=== PATIENT | female | born 1990 | race Caucasian/White ===

== ENCOUNTER 2020-11-13 16:06 | Emergency (ER) | payer OTHER, SELFPAY ==
[2020-11-13 17:39] VITALS: BP 122/58; PULSE 90; RESP 16; TEMP 36.4; O2SAT 98; BMI 27.9
[2020-11-13 17:51] VITALS: BP 109/69; PULSE 94; RESP 18; TEMP 36.8; O2SAT 97
--- NOTE | 2020-11-13 18:03 | ED.GENADULT ---
HPI - General Adult General Chief complaint: Extremity Injury, Lower <Katalina Olivera NP - Last Filed: 11/13/20 20:01> Stated complaint: pain in joints <Katalina Olivera NP - Last Filed: 11/13/20 20:01> Time Seen by Provider: 11/13/20 17:48 <Katalina Olivera NP - Last Filed: 11/13/20 20:01> Source: patient <Katalina Olivera NP - Last Filed: 11/13/20 20:01> Mode of arrival: ambulatory <Katalina Olivera NP - Last Filed: 11/13/20 20:> Limitations: no limitations <Katalina Olivera NP - Last Filed: 11/13/20 20:01> History of Present Illness HPI narrative: 30-year-old female with a past medical history of insulin-dependent diabetes, anxiety, depression,CIDP,high cholesterol here with joint pain x1 month. Patient tells me that she has had joint pain which is worsened in the morning and this is associated with swelling and stiffness which improves throughout the day x1 month. No previous injuries or traumas. Spoke to her doctor via telemedicine and was prescribed ibuprofen. Patient tells me he has continued symptoms not relieved. No swelling, fevers, chills, malaise, weakness. <Katalina Olivera NP - Last Filed: 11/13/20 20:01> Onset (ago): month(s) <NIKKI Gonzalez Last Filed: 11/13/20 20:01> Location: upper extremity and lower extremity <Katalina Olivera NP - Last Filed: 11/13/20 20:01> Radiation: non-radiation <Katalina Olivera NP - Last Filed: 11/13/20 20:01> Severity: mild <NIKKI Gonzalez Last Filed: 11/13/20 20:01> Quality: aching <NIKKI Gonzalez Last Filed: 11/13/20 20:01> Pain Consistency: intermittent <NIKKI Gonzalez Last Filed: 11/13/20 20:01> Relieving factors: movement <Katalina Olivera NP - Last Filed: 11/13/20 20:01> Exacerbating factors: immobilization <Katalina Olivera NP - Last Filed: 11/13/20 20:01> Associated symptoms: denies other symptoms <NIKKI Gonzalez Last Filed: 11/13/20 20:01> Treatments prior to arrival: none <Katalina Olivera NP - Last Filed: 11/13/20 20:01> Related Data Home medications: Home Medications Medication Instructions Recorded Confirmed duloxetine 20 mg capsule,delayed 20 mg PO DAILY cap 10/14/20 11/19/20 release insulin lispro 100 unit/mL 1 sliding scale dose SUBCUT 10/14/20 11/19/20 subcutaneous solution USEASDIRECTD trazodone 50 mg tablet 50 mg PO BEDTIME PRN 10/14/20 11/19/20 Previous Rx's Medication Instructions Recorded cyclobenzaprine 10 mg tablet 10 mg PO BEDTIME 30 Days #30 tab 11/04/20 ibuprofen 800 mg tablet 800 mg PO Q8H 10 Days #30 tab 11/04/20 <Katalina Olivera NP - Last Filed: 11/13/20 20:01> Allergies/adverse reactions: Allergies Allergy/AdvReac Type Severity Reaction Status Date / Time sertraline [From ZOLOFT] Allergy Unknown SEIZURE Unverified 07/10/20 16:28 gabapentin AdvReac Unknown depression Verified 01/02/20 00:00 zoloft Allergy Unknown Uncoded 11/05/19 00:00 <Katalina Olivera NP - Last Filed: 11/13/20 20:01> Review of Systems Review of Systems: Yes all other systems are reviewed and are negative <NIKKI Gonzalez Last Filed: 11/13/20 20:01> Constitutional: Constitutional: Reports no additional constitutional complaints, Denies body ache(s), Denies chills, Denies fever(s), Denies headache(s) and Denies weakness <NIKKI Gonzalez Last Filed: 11/13/20 20:01> Eyes: Eyes: Reports no additional eye complaints and Denies change in vision <Katalina Olivera NP - Last Filed: 11/13/20 20:> ENT: Reports system reviewed and no additional complaints, except as documented, Denies dizziness, Denies headache(s), Denies nasal congestion, Denies nasal discharge and Denies neck pain <Katalina Olivera NP - Last Filed: 11/13/20 20:> Cardiovascular: Cardiovascular: Reports no additional cardiovascular complaints, Denies chest pain, Denies leg edema and Denies dyspnea <Katalina Olivera NP - Last Filed: 11/13/20 20:> Respiratory: Respiratory: Reports no additional respiratory complaints, Denies cough and Denies dyspnea <Katalina Olivera NP - Last Filed: 11/13/20 20:> Gastrointestinal: Gastrointestinal: Reports no additional gastrointestinal complaints, Denies abdominal pain, Denies diarrhea, Denies nausea and Denies vomiting <Katalina Olivera NP - Last Filed: 11/13/20 20:> Genitourinary: Genitourinary: Reports no additional female genitourinary complaints and Denies urinary incontinence <Katalina Olivera NP - Last Filed: 11/13/20 20:> Musculoskeletal: Musculoskeletal: Reports no additional musculoskeletal complaints, Denies back pain, Reports arthralgias, Reports joint swelling, Denies neck pain, Denies numbness and Denies tingling <Katalina Olivera NP - Last Filed: 11/13/20 20:> Integumentary/Breasts: Skin/Breast: Reports system reviewed and no additional complaints, except as docu and Denies rash <Katalina Olivera NP - Last Filed: 11/13/20 20:> Neurologic: Reports system reviewed and no additional complaints, except as documented, Denies Abnormal speech present, Denies dizziness, Denies headache(s), Denies numbness, Denies tingling and Denies weakness <Katalina Olivera NP - Last Filed: 11/13/20 20:> PMFSH Past Medical History Attestation statement: The following information was validated with the patient. <Katalina Olivera NP - Last Filed: 11/13/20 20:01> Source: old records reviewed and nursing notes reviewed <Katalina Olivera NP - Last Filed: 11/13/20 20:01> Medical History: Medical History (Updated 11/19/20 @ 09:34 by Raimundo Marques MD) CIDP (chronic inflammatory demyelinating polyneuropathy) Diabetes mellitus type 1 Hypercholesterolemia <Katalina Olivera NP - Last Filed: 11/13/20 20:01> Family History Family History: Family History Mother Fibromyalgia Father High cholesterol Diabetes <Katalina Olivera NP - Last Filed: 11/13/20 20:01> Social History Social History: Social History Alcohol intake: never <Katalina Olivera NP - Last Filed: 11/13/20 20:01> Physical Exam Vital Signs: Vital Signs: Last Vital Signs Temp 98.3 F 11/13/20 17:51 Pulse 94 11/13/20 17:51 Resp 18 11/13/20 17:51 BP 109/69 11/13/20 17:51 Pulse Ox 97 11/13/20 17:51 Body Mass Index 27.9 <Katalina Olivera NP - Last Filed: 11/13/20 20:01> Vital Signs: Last Vital Signs Temp 98.3 F 11/13/20 17:51 Pulse 94 11/13/20 17:51 Resp 18 11/13/20 17:51 BP 109/69 11/13/20 17:51 Pulse Ox 97 11/13/20 17:51 Body Mass Index 27.9 <Andre Isbell MD - Last Filed: 11/19/20 12:31> Const: General: cooperative, healthy appearing, comfortable and no acute distress <Katalina Olivera NP - Last Filed: 11/13/20 20:01> Orientation/consciousness: patient oriented x3 <Katalina Olivera NP - Last Filed: 11/13/20 20:01> Limitations: no limitations <Katalina Olivera NP - Last Filed: 11/13/20 20:01> HENMT: Head: Yes normal to inspection <Katalina Olivera NP - Last Filed: 11/13/20 20:01> Ears: hearing grossly normal bilaterally <Katalina Olivera NP - Last Filed: 11/13/20 20:01> General nose exam: Normal external nose present <Katalina Olivera NP - Last Filed: 11/13/20 20:01> Face and sinus: Yes normal facial exam <Katalina Olivera NP - Last Filed: 11/13/20 20:01> Mouth: Normal oral and palatal mucosa present <Katalina Olivera ASSOCIATE PROFESSOR OF GEOLOGY - Last Filed: 11/13/20 20:01> Throat: Yes posterior oropharynx normal <Katalina Olivera NP - Last Filed: 11/13/20 20:01> Eyes: General: appearance normal, both eyes and all related structures <Katalina Olivera ASSOCIATE PROFESSOR OF GEOLOGY - Last Filed: 11/13/20 20:01> Pupils: Equal, round and reactive pupils present <Katalina Olivera ASSOCIATE PROFESSOR OF GEOLOGY - Last Filed: 11/13/20 20:01> Neck: Neck: Yes normal visual inspection <Katalina Olivera NP - Last Filed: 11/13/20 20:01> Chest: Chest palpation & inspection: normal inspection of the chest <Katalina Olivera NP - Last Filed: 11/13/20 20:01> Resp: Effort & Inspection: normal respiratory effort <Katalina Olivera NP - Last Filed: 11/13/20 20:01> Auscultation: clear to auscultation bilaterally <Katalina Olivera NP - Last Filed: 11/13/20 20:01> Cardio: Rate: regular rate <Katalina Olivera NP - Last Filed: 11/13/20 20:01> Rhythm: regular rhythm <Katalina Olivera NP - Last Filed: 11/13/20 20:01> Peripheral pulses: Peripheral pulses 2+ throughout <Katalina Olivera NP - Last Filed: 11/13/20 20:01> GI: Inspection: Yes normal to inspection <Katalina Olivera NP - Last Filed: 11/13/20 20:01> Palpation (GI): Soft to palpation and nontender <Katalina Olivera NP - Last Filed: 11/13/20 20:01> Auscultation: normal bowel sounds <Katalina Olivera NP - Last Filed: 11/13/20 20:01> Back/Spine/Pelvis: Thoracic/Lumbar Spine: thoracic and lumbar spine normal to inspection <Katalina Olivera NP - Last Filed: 11/13/20 20:01> Skin: General skin exam: no rashes or lesions noted <Katalina Olivera NP - Last Filed: 11/13/20 20:01> Neuro: General: patient oriented x3, no focal motor deficits and normal sensation to monofilament <Katalina Olivera NP - Last Filed: 11/13/20 20:01> Cranial nerves: Yes Equal, round and reactive pupils present <Katalina Olivera NP - Last Filed: 11/13/20 20:01> Cognition (Neuro): normal cognition <Katalina Olivera NP - Last Filed: 11/13/20 20:01> Speech: No Abnormal speech present <Katalina Olivera NP - Last Filed: 11/13/20 20:01> Gait exam (Neuro): Normal gait present <Katalina Olivera NP - Last Filed: 11/13/20 20:01> Motor exam (neuro): 5/5 motor strength present throughout <Katalina Olivera NP - Last Filed: 11/13/20 20:01> Extrem: Other: Multiple myalgias, full range of motion. No appreciable swelling, erythema, rashes <Katalina Olivera NP - Last Filed: 11/13/20 20:01> General: Yes normal to inspection <Katalina Olivera NP - Last Filed: 11/13/20 20:01> Course Course Course Narrative: Through 1-year-old female here with joint pain x1 month. No other associated symptoms. Pain is worsened in the morning and associated with swelling and stiffness. Exam is benign. Will check labs. I did discuss with the patient she likely will need to follow up with the guest room attendant for additional testing. Provide analgesia and re-assess. 1930-lab show potassium 5.4 with slight hemolysis not likely accurate. Mildly elevated inflammatory markers. Discussed findings with patient. There is likely underlying rheumatoid arthritis or another inflammatory disease. Recommend patient f.u with PCP and/or seek referral for rheumatology. Reviewed worrisome signs and symptoms of when to return to the emergency department. Comfortable discharge home. <Katalina Olivera NP - Last Filed: 11/13/20 20:01> I have reviewed the chart <Andre Isbell MD - Last Filed: 11/19/20 12:31> Medical Decision Making Medical Records Medical records reviewed: Yes I reviewed the patient's medical records. <Katalina Olivera NP - Last Filed: 11/13/20 20:01> Lab Data Lab results reviewed: Yes I reviewed the patient's lab results. <Katalina Olivera NP - Last Filed: 11/13/20 20:01> Result diagrams: : 11/13/20 18:31 11/13/20 18:31 <Katalina Olivera NP - Last Filed: 11/13/20 20:01> Labs: Lab Results 11/13/20 11/13/20 11/13/20 Range/Units 18:31 18:31 18:31 WBC 7.3 (4.8-10.8) X10*3/uL RBC 4.00 L (4.20-5.50) X10*6/uL Hgb 10.8 L (12.0-16.0) g/dl Hct 35.6 L (37-47) % MCV 89.0 (80-98) fL MCH 27.0 (27.0-33.0) pg MCHC 30.3 L (31.0-35.0) g/dl RDW 12.8 (11.0-16.0) % Plt Count 294 (160-400) X10*3/uL MPV 9.9 (9.4-12.3) fL Immature Gran % (Auto) 0.1 (0.0-0.4) % Neut % (Auto) 59.0 (45-73) % Lymph % (Auto) 30.9 (20-40) % [facility] % (Auto) 8.0 (2-11) % Eos % (Auto) 1.7 (0-4) % Baso % (Auto) 0.3 (0-2) % Lymph # (Auto) 2.3 (1.2-4.9) X10*3/uL [facility] [facility] # (Auto) 0.6 (0.1-1.2) X10*3/uL Eos # (Auto) 0.1 (0.0-0.4) X10*3/uL Baso # (Auto) 0.0 (0.0-0.2) X10*3/uL Abs Immat Gran (auto) 0.01 (0.00-0.03) X10*3/uL Absolute Neuts (auto) 4.3 (2.0-8.3) X10*3/uL Absolute Nucleated RBC 0.000 (0.0-0.012) X10*3/uL Nucleated RBC % (auto) 0.0 (0.0-0.2) /100WBC ESR 66 H (0-20) MM/HR Hold Blue Top SEE NOTE Sodium (135-145) mmol/L Potassium (3.3-5.1) mmol/l Chloride (96-108) mmol/L Carbon Dioxide (22-29) mmol/L Anion Gap (12-20) BUN (9-16) mg/dL Creatinine (0.5-1.4) mg/dL Estim Creat Clear Calc Estimated GFR Random Glucose (60-115) mg/dL Calcium (8.4-10.2) mg/dL C-Reactive Protein (< or = 0.50) mg/dL 11/13/20 Range/Units 18:31 WBC (4.8-10.8) X10*3/uL RBC (4.20-5.50) X10*6/uL Hgb (12.0-16.0) g/dl Hct (37-47) % MCV (80-98) fL MCH (27.0-33.0) pg MCHC (31.0-35.0) g/dl RDW (11.0-16.0) % Plt Count (160-400) X10*3/uL MPV (9.4-12.3) fL Immature Gran % (Auto) (0.0-0.4) % Neut % (Auto) (45-73) % Lymph % (Auto) (20-40) % [facility] [place] [facility] % (Auto) (2-11) % Eos % (Auto) (0-4) % Baso % (Auto) (0-2) % Lymph # (Auto) (1.2-4.9) X10*3/uL [facility] [place] [facility] # (Auto) (0.1-1.2) X10*3/uL Eos # (Auto) (0.0-0.4) X10*3/uL Baso # (Auto) (0.0-0.2) X10*3/uL Abs Immat Gran (auto) (0.00-0.03) X10*3/uL Absolute Neuts (auto) (2.0-8.3) X10*3/uL Absolute Nucleated RBC (0.0-0.012) X10*3/uL Nucleated RBC % (auto) (0.0-0.2) /100WBC ESR (0-20) MM/HR Hold Blue Top Sodium 137 (135-145) mmol/L Potassium 5.4 H (3.3-5.1) mmol/l Chloride 101 (96-108) mmol/L Carbon Dioxide 29 (22-29) mmol/L Anion Gap 12 (12-20) BUN 8 L (9-16) mg/dL Creatinine 0.87 (0.5-1.4) mg/dL Estim Creat Clear Calc 91.4 Estimated GFR > 60 Random Glucose 289 H (60-115) mg/dL Calcium 8.9 (8.4-10.2) mg/dL C-Reactive Protein 4.81 H (< or = 0.50) mg/dL <Katalina Olivera, ASSOCIATE PROFESSOR OF GEOLOGY - Last Filed: 11/13/20 20:01> Lab Results 11/13/20 11/13/20 11/13/20 Range/Units 18:31 18:31 18:31 WBC 7.3 (4.8-10.8) X10*3/uL RBC 4.00 L (4.20-5.50) X10*6/uL Hgb 10.8 L (12.0-16.0) g/dl Hct 35.6 L (37-47) % MCV 89.0 (80-98) fL MCH 27.0 (27.0-33.0) pg MCHC 30.3 L (31.0-35.0) g/dl RDW 12.8 (11.0-16.0) % Plt Count 294 (160-400) X10*3/uL MPV 9.9 (9.4-12.3) fL Immature Gran % (Auto) 0.1 (0.0-0.4) % Neut % (Auto) 59.0 (45-73) % Lymph % (Auto) 30.9 (20-40) % [facility] [place] [facility] % (Auto) 8.0 (2-11) % Eos % (Auto) 1.7 (0-4) % Baso % (Auto) 0.3 (0-2) % Lymph # (Auto) 2.3 (1.2-4.9) X10*3/uL [facility] [place] [facility] # (Auto) 0.6 (0.1-1.2) X10*3/uL Eos # (Auto) 0.1 (0.0-0.4) X10*3/uL Baso # (Auto) 0.0 (0.0-0.2) X10*3/uL Abs Immat Gran (auto) 0.01 (0.00-0.03) X10*3/uL Absolute Neuts (auto) 4.3 (2.0-8.3) X10*3/uL Absolute Nucleated RBC 0.000 (0.0-0.012) X10*3/uL Nucleated RBC % (auto) 0.0 (0.0-0.2) /100WBC ESR 66 H (0-20) MM/HR Hold Blue Top SEE NOTE Sodium (135-145) mmol/L Potassium (3.3-5.1) mmol/l Chloride (96-108) mmol/L Carbon Dioxide (22-29) mmol/L Anion Gap (12-20) BUN (9-16) mg/dL Creatinine (0.5-1.4) mg/dL Estim Creat Clear Calc Estimated GFR Random Glucose (60-115) mg/dL Calcium (8.4-10.2) mg/dL C-Reactive Protein (< or = 0.50) mg/dL 11/13/20 Range/Units 18:31 WBC (4.8-10.8) X10*3/uL RBC (4.20-5.50) X10*6/uL Hgb (12.0-16.0) g/dl Hct (37-47) % MCV (80-98) fL MCH (27.0-33.0) pg MCHC (31.0-35.0) g/dl RDW (11.0-16.0) % Plt Count (160-400) X10*3/uL MPV (9.4-12.3) fL Immature Gran % (Auto) (0.0-0.4) % Neut % (Auto) (45-73) % Lymph % (Auto) (20-40) % [facility] % (Auto) (2-11) % Eos % (Auto) (0-4) % Baso % (Auto) (0-2) % Lymph # (Auto) (1.2-4.9) X10*3/uL [facility] # (Auto) (0.1-1.2) X10*3/uL Eos # (Auto) (0.0-0.4) X10*3/uL Baso # (Auto) (0.0-0.2) X10*3/uL Abs Immat Gran (auto) (0.00-0.03) X10*3/uL Absolute Neuts (auto) (2.0-8.3) X10*3/uL Absolute Nucleated RBC (0.0-0.012) X10*3/uL Nucleated RBC % (auto) (0.0-0.2) /100WBC ESR (0-20) MM/HR Hold Blue Top Sodium 137 (135-145) mmol/L Potassium 5.4 H (3.3-5.1) mmol/l Chloride 101 (96-108) mmol/L Carbon Dioxide 29 (22-29) mmol/L Anion Gap 12 (12-20) BUN 8 L (9-16) mg/dL Creatinine 0.87 (0.5-1.4) mg/dL Estim Creat Clear Calc 91.4 Estimated GFR > 60 Random Glucose 289 H (60-115) mg/dL Calcium 8.9 (8.4-10.2) mg/dL C-Reactive Protein 4.81 H (< or = 0.50) mg/dL <Andre Isbell MD - Last Filed: 11/19/20 12:31> Discharge Plan Discharge Clinical Impression: Arthritis <Katalina Olivera NP - Last Filed: 11/13/20 20:01> Patient Disposition: Home, Self-Care <Katalina Olivera NP - Last Filed: 11/13/20 20:01> Instructions: Arthritis (ED) <Katalina Olivera NP - Last Filed: 11/13/20 20:01> Additional Instructions: Ask your doctor for a referral to see a guest room attendant as you need to be worked up for underlying causes Your inflammatory markers were elevated today Continue motrin <Katalina Olivera NP - Last Filed: 11/13/20 20:01> Prescriptions: No Action ibuprofen 800 mg tablet 800 mg PO Q8H 10 Days Qty: 30 RF: 0 cyclobenzaprine 10 mg tablet 10 mg PO BEDTIME 30 Days Qty: 30 RF: 0 duloxetine 20 mg capsule,delayed release(DR/EC) 20 mg PO DAILY RF: 0 insulin lispro [Admelog U-100 Insulin lispro] 100 unit/mL solution 1 sliding scale dose subcut USEASDIRECTD RF: 0 trazodone 50 mg tablet 50 mg PO BEDTIME PRNRF: 0 <Katalina Olivera NP - Last Filed: 11/13/20 20:01> Referrals: Sarah Bates MD [Primary Care Provider] - 2 days <Katalina Olivera NP - Last Filed: 11/13/20 20:01> Stand Alone Forms: Work/School Release <Katalina Olivera NP - Last Filed: 11/13/20 20:01> Interventions: ED Discharge Assessment Last Done: 11/13/20 19:50 <Katalina Olivera NP - Last Filed: 11/13/20 20:01> Discharge Date/Time: 11/13/20 19:52 <Katalina Olivera NP - Last Filed: 11/13/20 20:01>
[2020-11-13] MEDS: Ketorolac Tromethamine 60 MG/2 ML VIAL IM (18:33)
[2020-11-13 18:34] LABS: MANUAL DIFF FLAG NO
[2020-11-13 18:36] LABS: Basophils Percent Auto 0.3 % (0-2); Eosinophils Absolute Auto 0.1 X10*3/uL (0.0-0.4); Eosinophils Percent Auto 1.7 % (0-4); Hematocrit 35.6 % (37-47); Hemoglobin 10.8 g/dl (12.0-16.0); Imm Gran Abs Auto 0.01 X10*3/uL (0.00-0.03); Imm Gran Pct Auto 0.1 % (0.0-0.4); Lymphocytes Absolute Auto 2.3 X10*3/uL (1.2-4.9); Lymphocytes Percent Auto 30.9 % (20-40); Mean Corpuscular HGB Conc 30.3 g/dl (31.0-35.0); Mean Platelet Volume 9.9 fL (9.4-12.3); Monocytes Absolute Auto 0.6 X10*3/uL (0.1-1.2); Neutrophils Absolute Auto 4.3 X10*3/uL (2.0-8.3); Platelet Count 294 X10*3/uL (160-400); Red Cell Distribution Width 12.8 % (11.0-16.0); White Blood Count 7.3 X10*3/uL (4.8-10.8)
[2020-11-13 19:17] LABS: Anion Gap 12 (12-20); Blood Urea Nitrogen 8 mg/dL (9-16); C Reactive Protein 4.81 mg/dL (< or = 0.50); Calcium 8.9 mg/dL (8.4-10.2); Carbon Dioxide 29 mmol/L (22-29); Chloride 101 mmol/L (96-108); Creatinine Clr Calc Pharmacy 91.4; Estimated Glomerular Filt Rate > 60; Glucose Random 289 mg/dL (60-115); Potassium 5.4 mmol/l (3.3-5.1); Sodium 137 mmol/L (135-145)
[2020-11-13 19:31] LABS: Erythrocyte Sedimentation Rate 66 MM/HR (0-20)
== END 2020-11-13 19:52 | disposition home or self-care (01) ==
PROVIDERS: Nurse Practitioner Family; Emergency Provider Emergency Medicine; PCP Internal Medicine
DX: M17.0 Bilateral primary osteoarthritis of knee (principal); M79.662 Pain in left lower leg; M79.661 Pain in right lower leg; E10.9 Type 1 diabetes mellitus without complications; Z79.899 Other long term (current) drug therapy
CPT/HCPCS: 36415; 80048; 85025; 85652; 86140; 96372; 99284; J1885

== ENCOUNTER 2020-11-21 15:31 | Outpatient (REF) | payer OTHER, SELFPAY ==
[2020-11-21 15:57] LABS: MANUAL DIFF FLAG NO
[2020-11-21 16:03] LABS: Basophils Percent Auto 0.2 % (0-2); Eosinophils Absolute Auto 0.1 X10*3/uL (0.0-0.4); Eosinophils Percent Auto 1.3 % (0-4); Hematocrit 35.3 % (37-47); Hemoglobin 10.9 g/dl (12.0-16.0); Imm Gran Abs Auto 0.03 X10*3/uL (0.00-0.03); Imm Gran Pct Auto 0.3 % (0.0-0.4); Lymphocytes Absolute Auto 2.6 X10*3/uL (1.2-4.9); Lymphocytes Percent Auto 30.3 % (20-40); Mean Corpuscular HGB Conc 30.9 g/dl (31.0-35.0); Mean Corpuscular Volume 87.4 fL (80-98); Mean Platelet Volume 10.4 fL (9.4-12.3); Monocytes Absolute Auto 0.5 X10*3/uL (0.1-1.2); Monocytes Percent Auto 6.3 % (2-11); Neutrophils Absolute Auto 5.3 X10*3/uL (2.0-8.3); Neutrophils Percent Auto 61.6 % (45-73); Platelet Count 299 X10*3/uL (160-400); Red Blood Count 4.04 X10*6/uL (4.20-5.50); Red Cell Distribution Width 12.6 % (11.0-16.0); Retic HGB Equivalent 31.7 pg (30.0-35.0); Reticulocyte Percent 1.5 % (0.5-1.8); White Blood Count 8.6 X10*3/uL (4.8-10.8)
--- NOTE | 2020-11-21 16:03 | XR_ITS ---
EXAMINATION: BILATERAL HAND X-RAY CLINICAL INFORMATION: Pain COMPARISON: Previous right wrist x-rays most recent October 2019 TECHNIQUE: 3 views of each hand FINDINGS: Right: There is a volar placed plate and screws seen in the right distal radius. Previously identified distal radius fracture appears healed. Orthopedic hardware is unchanged. There is mild osteoarthritis at the DIP joint of the fifth finger. Joint spaces are otherwise normal. Soft tissues are normal. Left: Bone alignment is normal. No fracture or dislocation is seen. Joint spaces are normal. Soft tissues are normal. XR/XR hand LT min 3V IMPRESSION: Right: ORIF of distal radius fracture. Mild osteoarthritis at the DIP joint of the fifth finger. Left: Unremarkable exam.
--- NOTE | 2020-11-21 16:03 | XR_ITS ---
EXAMINATION: BILATERAL KNEE X-RAY CLINICAL INFORMATION: Pain COMPARISON: None TECHNIQUE: 4 views each knee FINDINGS: Bone alignment is normal. No fracture or dislocation is seen. Joint spaces are normal. There is no joint effusion. XR/XR knee LT 4V IMPRESSION: Normal knees.
--- NOTE | 2020-11-21 16:03 | XR_ITS ---
EXAMINATION: BILATERAL KNEE X-RAY CLINICAL INFORMATION: Pain COMPARISON: None TECHNIQUE: 4 views each knee FINDINGS: Bone alignment is normal. No fracture or dislocation is seen. Joint spaces are normal. There is no joint effusion. XR/XR knee RT 4V IMPRESSION: Normal knees.
--- NOTE | 2020-11-21 16:03 | XR_ITS ---
EXAMINATION: BILATERAL HAND X-RAY CLINICAL INFORMATION: Pain COMPARISON: Previous right wrist x-rays most recent October 2019 TECHNIQUE: 3 views of each hand FINDINGS: Right: There is a volar placed plate and screws seen in the right distal radius. Previously identified distal radius fracture appears healed. Orthopedic hardware is unchanged. There is mild osteoarthritis at the DIP joint of the fifth finger. Joint spaces are otherwise normal. Soft tissues are normal. Left: Bone alignment is normal. No fracture or dislocation is seen. Joint spaces are normal. Soft tissues are normal. XR/XR hand RT min 3V IMPRESSION: Right: ORIF of distal radius fracture. Mild osteoarthritis at the DIP joint of the fifth finger. Left: Unremarkable exam.
[2020-11-21 16:35] LABS: Alanine Aminotransferase 19 U/L (0-31); Albumin Level 3.6 g/dL (3.5-5.0); Alkaline Phosphatase 126 U/L (39-117); Anion Gap 13 (12-20); Aspartate Amino Transferase 24 U/L (5-31); Bilirubin Total 0.4 mg/dL (0.0-1.0); Blood Urea Nitrogen 15 mg/dL (9-16); Calcium 8.8 mg/dL (8.4-10.2); Carbon Dioxide 31 mmol/L (22-29); Chloride 101 mmol/L (96-108); Cholesterol 205 mg/dL; Estimated Glomerular Filt Rate > 60; Glucose Random 165 mg/dL (60-115); HDL Cholesterol 59 mg/dL; Iron 30 mcg/dL (30-160); LDL Cholesterol Calculated 83 mg/dl; Percent Iron Saturation 9 % (15-50); Potassium 4.5 mmol/L (3.3-5.1); Rheumatoid Factor < 15.0 IU/mL (<15.0); Sodium 140 mmol/L (135-145); Total Iron Binding Capacity 332 mcg/dL (228-428); Total Protein 7.1 g/dL (6.5-8.0); Triglycerides 317 mg/dL; Unsaturated Iron Binding 302 ug/dL
[2020-11-21 16:57] LABS: Ferritin 20 ng/mL (10-122); Free T4 (Free Thyroxine) 0.88 ng/dL (0.71-1.85); Thyroid Stimulating Hormone 2.82 uIU/mL (0.32-4.0)
[2020-11-21 17:13] LABS: Erythrocyte Sedimentation Rate 78 MM/HR (0-20)
[2020-11-24 16:33] LABS: Folate 15.3 ng/mL (> or = 4.0); Vitamin B12 427 pg/mL (200-900)
== END 2020-11-21 15:32 | disposition home or self-care (01) ==
LOC: HO.LAB 15:31
PROVIDERS: PCP Internal Medicine; Visit Provider Internal Medicine
DX: M79.642 Pain in left hand (principal); M79.641 Pain in right hand; M25.562 Pain in left knee; M25.561 Pain in right knee; D64.9 Anemia, unspecified; E78.00 Pure hypercholesterolemia, unspecified
CPT/HCPCS: 36415; 73130; 73564; 80053; 80061; 82607; 82728; 82746; 83540; 84439; 84443; 85025; 85045; 85652; 86038; 86039; 86431

== ENCOUNTER 2021-02-12 10:09 | Outpatient (REF) | payer OTHER, SELFPAY ==
[2021-02-12 11:21] LABS: MANUAL DIFF FLAG NO
[2021-02-12 11:39] LABS: Basophils Percent Auto 0.5 % (0-2); Eosinophils Absolute Auto 0.1 X10*3/uL (0.0-0.4); Eosinophils Percent Auto 1.1 % (0-4); Hematocrit 34.9 % (37-47); Hemoglobin 10.6 g/dl (12.0-16.0); Imm Gran Abs Auto 0.03 X10*3/uL (0.00-0.03); Imm Gran Pct Auto 0.3 % (0.0-0.4); Lymphocytes Absolute Auto 2.2 X10*3/uL (1.2-4.9); Lymphocytes Percent Auto 24.5 % (20-40); Mean Corpuscular HGB Conc 30.4 g/dl (31.0-35.0); Mean Corpuscular Hemoglobin 25.2 pg (27.0-33.0); Mean Corpuscular Volume 82.9 fL (80-98); Mean Platelet Volume 10.5 fL (9.4-12.3); Monocytes Absolute Auto 0.5 X10*3/uL (0.1-1.2); Monocytes Percent Auto 5.8 % (2-11); Neutrophils Percent Auto 67.8 % (45-73); Platelet Count 340 X10*3/uL (160-400); Red Blood Count 4.21 X10*6/uL (4.20-5.50); Red Cell Distribution Width 13.9 % (11.0-16.0); White Blood Count 8.8 X10*3/uL (4.8-10.8)
[2021-02-12 12:16] LABS: Thyroid Stimulating Hormone 2.02 uIU/mL (0.32-4.0)
[2021-02-12 12:22] LABS: Alanine Aminotransferase 11 U/L (0-31); Albumin Level 3.7 g/dL (3.5-5.0); Alkaline Phosphatase 136 U/L (39-117); Anion Gap 14 (12-20); Aspartate Amino Transferase 15 U/L (5-31); Bilirubin Total 0.2 mg/dL (0.0-1.0); Blood Urea Nitrogen 20 mg/dL (9-16); C Reactive Protein 5.53 mg/dL (< or = 0.50); Calcium 9.2 mg/dL (8.4-10.2); Carbon Dioxide 27 mmol/L (22-29); Chloride 103 mmol/L (96-108); Estimated Glomerular Filt Rate > 60; Glucose Random 248 mg/dL (60-115); Potassium 4.6 mmol/L (3.3-5.1); Sodium 139 mmol/L (135-145); Total Protein 7.6 g/dL (6.5-8.0)
[2021-02-12 12:52] LABS: Rheumatoid Factor < 15.0 IU/mL (<15.0)
[2021-02-12 13:09] LABS: Erythrocyte Sedimentation Rate 63 MM/HR (0-20)
[2021-02-13 05:16] LABS: Lyme Abs Screen <0.90 index
[2021-02-13 11:41] LABS: Cyclic Citrullinated Peptide <16 UNITS
[2021-02-13 12:33] LABS: Antibody to SS-A Antigen <1.0 NEG AI (<1.0 NEG); Antibody to SS-B Antigen <1.0 NEG AI (<1.0 NEG)
[2021-02-13 22:42] LABS: Anti Nuclear Antibody Pattern Nuclear, Homogeneous; Anti Nuclear Antibody Screen POSITIVE (NEGATIVE)
[2021-02-16 17:41] LABS: Vitamin D 25-OH, D2 5 ng/mL; Vitamin D 25-OH, D3 24 ng/mL; Vitamin D 25-OH, Total 29 ng/mL (30-100)
== END 2021-02-12 10:10 | disposition home or self-care (01) ==
LOC: HO.LAB 10:09
PROVIDERS: PCP Internal Medicine; Visit Provider Student in an Organized Health Care Education/Training Program
DX: M25.50 Pain in unspecified joint (principal); G61.81 Chronic inflammatory demyelinating polyneuritis; Z79.899 Other long term (current) drug therapy; Z79.4 Long term (current) use of insulin
CPT/HCPCS: 36415; 80053; 82306; 84443; 85025; 85652; 86038; 86039; 86140; 86200; 86235; 86431; 86617; 86618; 99202

== ENCOUNTER 2021-02-25 15:32 | Outpatient (REF) | payer OTHER, SELFPAY ==
[2021-02-25 16:25] LABS: MANUAL DIFF FLAG NO
[2021-02-25 16:35] LABS: Estimated Average Glucose 200 mg/dL; Hemoglobin A1c % 8.6 %
[2021-02-25 16:36] LABS: Basophils Percent Auto 0.3 % (0-2); Eosinophils Absolute Auto 0.1 X10*3/uL (0.0-0.4); Eosinophils Percent Auto 0.9 % (0-4); Hematocrit 35.2 % (37-47); Hemoglobin 10.9 g/dl (12.0-16.0); Imm Gran Abs Auto 0.02 X10*3/uL (0.00-0.03); Imm Gran Pct Auto 0.3 % (0.0-0.4); Immature Retic Fraction 17.7 % (3.0-15.9); Lymphocytes Absolute Auto 2.4 X10*3/uL (1.2-4.9); Lymphocytes Percent Auto 30.7 % (20-40); Mean Corpuscular Hemoglobin 25.3 pg (27.0-33.0); Mean Corpuscular Volume 81.9 fL (80-98); Mean Platelet Volume 10.7 fL (9.4-12.3); Monocytes Absolute Auto 0.4 X10*3/uL (0.1-1.2); Monocytes Percent Auto 5.3 % (2-11); Neutrophils Absolute Auto 4.8 X10*3/uL (2.0-8.3); Neutrophils Percent Auto 62.5 % (45-73); Platelet Count 326 X10*3/uL (160-400); Red Cell Distribution Width 14.3 % (11.0-16.0); Retic HGB Equivalent 28.5 pg (30.0-35.0); Reticulocyte Percent 1.3 % (0.5-1.8); Reticulocytes Absolute 0.054 X10*6/uL (0.026-0.095); White Blood Count 7.7 X10*3/uL (4.8-10.8)
[2021-02-25 16:59] LABS: Rheumatoid Factor < 15.0 IU/mL (<15.0)
[2021-02-25 17:06] LABS: Iron 122 mcg/dL (30-160); Percent Iron Saturation 39 % (15-50); Total Iron Binding Capacity 313 mcg/dL (228-428); Unsaturated Iron Binding 191 ug/dL
[2021-02-25 17:29] LABS: Ferritin 31 ng/mL (10-122)
[2021-02-25 17:39] LABS: Vitamin B12 448 pg/mL (200-900)
[2021-02-26 09:11] LABS: Thyroglobulin Antibodies 22 IU/mL (< or = 1); Thyroid Peroxidase Antibodies 583 IU/mL (<9)
[2021-02-26 10:22] LABS: Complement C3 181 mg/dL (83-193)
[2021-02-26 12:02] LABS: Anti DNA DS Antibody <1 IU/mL; SM/Ribonucleoprotein Ab <1.0 NEG AI (<1.0 NEG); Smith Protein <1.0 NEG AI (<1.0 NEG)
== END 2021-02-25 15:33 | disposition home or self-care (01) ==
LOC: HO.LAB 15:32
PROVIDERS: Nurse Practitioner Family; PCP Internal Medicine; Visit Provider Student in an Organized Health Care Education/Training Program
DX: M25.562 Pain in left knee (principal); E10.9 Type 1 diabetes mellitus without complications; D64.9 Anemia, unspecified; R76.8 Other specified abnormal immunological findings in serum
CPT/HCPCS: 36415; 82607; 82728; 82746; 83036; 83540; 85025; 85045; 86160; 86225; 86235; 86376; 86431; 86800

== ENCOUNTER → 2021-04-17 10:22 | Outpatient (BNVA) | payer OTHER, SELFPAY | PROVIDERS: PCP Internal Medicine; Visit Provider Student in an Organized Health Care Education/Training Program | DX: M25.50 Pain in unspecified joint (principal); M79.641 Pain in right hand; M79.642 Pain in left hand; R76.8 Other specified abnormal immunological findings in serum | CPT/HCPCS: 99212 ==

== ENCOUNTER 2022-10-01 10:48 | Emergency (ER) | payer OTHER, SELFPAY ==
--- NOTE | ~2022-10-01 | US_ITS ---
EXAMINATION: US PELVIS CLINICAL INFORMATION: Vaginal bleeding in a 32-year-old female. COMPARISON: None TECHNIQUE: Ultrasound of the pelvis is performed using both transabdominal and transvaginal transducers along with Doppler. Transvaginal imaging is performed due to inadequate visualization transabdominally. FINDINGS: UTERUS AND CERVIX The anteflexed, anteverted uterus measures approximately 8.5 x 4.3 x 5 cm (ucfgjc-ky-rkmjqg x AP x transverse dimension). The myometrial echotexture is normal. No evidence of leiomyoma. There are multiple clustered cysts along the endocervical canal. This could represent endocervical hyperplasia. No focal cervical lesion. The cervix is approximately 3 cm in length. The endometrium has normal echotexture and measures up to 1.3 cm AP. This has the appearance of a secretory phase of the endometrium. No focal endometrial lesion. ADNEXA: The right ovary is 2.6 x 2 x 1.9 cm, volume of 5.2 mL and left ovary 3.6 x 2.9 x 3.1 cm, volume of 17 mL. The left ovary is enlarged due to presence of a 2.5 cm dominant follicle. FREE FLUID: None. US/US pelvic and transvaginal IMPRESSION: * No specific source of vaginal bleeding is identified. No evidence of uterine leiomyoma, endometrial polyp or endometrial fluid. * Multiple small foci of cystic change along the cervix could represent endocervical hyperplasia. * The ovaries are normal. The dominant follicle of the left ovary is 2.5 cm.
[2022-10-01 10:54] VITALS: BP 132/78; PULSE 100; RESP 16; TEMP 36.2; O2SAT 99; BMI 29.4
[2022-10-01 11:13] LABS: MANUAL DIFF FLAG NO
[2022-10-01 11:25] LABS: Basophils Percent Auto 0.3 % (0-2); Eosinophils Absolute Auto 0.1 X10*3/uL (0.0-0.4); Hemoglobin 12.4 g/dl (12.0-16.0); Imm Gran Abs Auto 0.02 X10*3/uL (0.00-0.03); Imm Gran Pct Auto 0.3 % (0.0-0.4); Lymphocytes Absolute Auto 2.2 X10*3/uL (1.2-4.9); Lymphocytes Percent Auto 37.8 % (20-40); Mean Corpuscular HGB Conc 31.8 g/dl (31.0-35.0); Mean Corpuscular Hemoglobin 27.7 pg (27.0-33.0); Mean Corpuscular Volume 87.2 fL (80.0-98.0); Mean Platelet Volume 10.2 fL (9.4-12.3); Monocytes Absolute Auto 0.3 X10*3/uL (0.1-1.2); Monocytes Percent Auto 5.6 % (2-11); Neutrophils Absolute Auto 3.1 x10*3/uL (2.0-8.3); Platelet Count 261 X10*3/uL (160-400); Red Blood Count 4.47 X10*6/uL (4.20-5.50); Red Cell Distribution Width 14.3 % (11.0-16.0); White Blood Count 5.7 X10*3/uL (4.8-10.8)
[2022-10-01 11:57] LABS: Anion Gap 12 (12-20); Blood Urea Nitrogen 8 mg/dL (9-16); Calcium 8.8 mg/dL (8.4-10.2); Carbon Dioxide 24 mmol/L (22-29); Chloride 102 mmol/L (96-108); Creatinine Clr Calc Pharmacy 91.5; Estimated Glomerular Filt Rate > 60; Glucose Random 330 mg/dL (60-115); HCG Quantitative < 2 mIU/mL; Potassium 5.2 mmol/L (3.3-5.1); Sodium 133 mmol/L (135-145)
[2022-10-01 12:58] LABS: Alanine Aminotransferase 12 U/L (0-31); Albumin Level 3.8 g/dL (3.5-5.0); Alkaline Phosphatase 110 U/L (39-117); Aspartate Amino Transferase 24 U/L (5-31); Bilirubin Direct < 0.2 mg/dL (0.0-0.5); Bilirubin Total 0.3 mg/dL (0.0-1.0); Lipase 16 U/L (8-78); Magnesium 1.8 mg/dL (1.6-2.6); Total Protein 7.7 g/dL (6.5-8.0)
--- NOTE | 2022-10-01 16:48 | ED.FEMALEGU ---
HPI - Female Genitourinary General Chief complaint: Urogenital-Female Stated complaint: Heavy Period Clots Sent By Obgyn Time Seen by Provider: 10/01/22 16:48 Source: patient Mode of arrival: ambulatory Limitations: no limitations History of Present Illness HPI Narrative: 32-year-old female presents with vaginal bleeding with heavy clot starting on 09/15/2022. She does report missing several menstrual cycles prior to this bleeding. She is not on any hormones, and is not . She is passing large clots, and has a picture of a blood clot that is the size of her hand. She is going through at least a pad an hour. She reports dizziness. MD elicited complaint: vaginal bleeding Pertinent past history: diabetes Onset (ago): day(s) (3) Location of symptoms: vaginal Severity: moderate Severity scale (1-10): 5 Quality of pain: cramping Consistency: intermittent Vaginal discharge: none Vaginal bleeding: moderate, dark red and clots Exacerbating factors: movement Relieving factors: none Associated symptoms: other (Dizziness) Treatment prior to arrival: none Sexual activity: No Patient : No Related Data : 2 Para: 1 Total number of abortions (spontaneous and elective): 1 Home Medications Medication Instructions Recorded Confirmed duloxetine 20 mg capsule,delayed 20 mg PO DAILY 10/14/20 02/25/21 release insulin lispro 100 unit/mL 1 sliding scale dose subcut 10/14/20 02/25/21 subcutaneous solution (Admelog USEASDIRECTD U-100 Insulin lispro) Previous Rx's Medication Instructions Recorded ascorbic acid (vitamin C) 500 mg 500 mg PO DAILY #30 tabs 01/19/21 tablet (Vitamin C) ibuprofen 800 mg tablet 800 mg PO Q8H #30 tabs 11/30/21 ferrous sulfate 325 mg (65 mg 325 mg PO DAILY #30 tabs 01/22/22 iron) tablet desogestrel 0.15 mg-ethinyl 1 tab PO DAILY #84 tabs 10/01/22 estradiol 0.03 mg tablet (Apri) Allergies Allergy/AdvReac Type Severity Reaction Status Date / Time sertraline [From ZOLOFT] Allergy Unknown SEIZURE Verified 10/01/22 10:54 gabapentin AdvReac Unknown depression Verified 10/01/22 10:54 Review of Systems Review of Systems: Constitutional: No Fever, No Chills ENT/Mouth: No sore throat, No Rhinorrhea Eyes: No Eye Pain, No Redness Cardiovascular: No Chest Pain, No SOB Respiratory: No Cough, No Sputum, No Wheezing Gastrointestinal: No Nausea, No Vomiting, No Diarrhea, positive abdominal pain Genitourinary: positive irregular bleeding, No Dysuria, No Urinary Frequency, positive pelvic pain Musculoskeletal: No Myalgias Skin: No rash Neuro: No Weakness, No Headache Yes all other systems are reviewed and are negative [facility] Past Medical History Attestation statement: The following information was validated with the patient. Source: old records reviewed Medical History CIDP (chronic inflammatory demyelinating polyneuropathy) Diabetes mellitus type 1 Distal radius fracture Hypercholesterolemia Surgical History H/O right wrist surgery : 2 Para: 1 Total number of abortions (spontaneous and elective): 1 Family History Family History Mother Fibromyalgia Father High cholesterol Diabetes Sister No problems noted. Son No problems noted. Social History Social History Alcohol intake: never Patient Tobacco Use Status: Never used Tobacco e-Cigarette/Vaping Use: Never Used Advance Directives: No Advance Directives Information Provided: Yes Patient : No Physical Exam Vital Signs: Vital Signs: Last Vital Signs Temp 97.8 F 10/01/22 17:19 Pulse 88 10/01/22 17:19 Resp 20 10/01/22 17:19 BP 150/94 H 10/01/22 17:19 Pulse Ox 100 10/01/22 17:19 O2 Del Method 10/01/22 17:19 BMI result Body Mass Index 29.4 Appearance: Alert. Oriented X3. No acute distress. Eyes: Pupils equal, round and reactive to light. ENT: Pharynx normal. Neck: Normal inspection. Neck supple. CVS: Normal heart rate and rhythm. Pulses normal. Respiratory: No respiratory distress. Breath sounds normal. Abdomen: Soft and nontender. Skin: Skin warm and dry. Normal skin color. Normal skin turgor. Extremities: Gait well-balanced well coordinated. Neuro: No motor deficit. No sensory deficit. Cranial nerves 2-12 intact. Course Course Course Narrative: Patient presented to the emergency department for evaluation for vaginal bleeding with large blood clots. She was referred by her OBGYN, and has been going through a pad an hour for the past few hours. Patient is hemodynamically stable, labs are drawn while in the emergency department waiting room, pelvic ultrasound was completed. Pelvic ultrasound indicates some abnormal cervical tissue, H&H is stable at 12 0.4/39.0. Glucose is 330, patient does not want me to correct her blood sugar as she is a type 1 diabetic and will correct on her own with her insulin pump. Her potassium is 5.2, sodium will correct on insulin administration. I did discuss plan in detail, that patient must follow-up with OBGYN for cervical biopsy as this could be cervical cancer. Patient does have a significant family history of abnormal uterine bleeding. Patient is hemodynamically stable, alert oriented x4, and eating and drinking without difficulty. 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 Patient verbalized understanding of and agrees plan of care discharge home. Verbalized understanding of signs symptoms indicating need for emergent intervention. Medications Administered Discontinued Medications Generic Name Dose Route Start Last Admin Trade Name Freq PRN Reason Stop Dose Admin Sodium Chloride 1,000 mls @ 999 mls/hr 10/01/22 12:45 10/01/22 17:28 Ns IV 10/01/22 13:45 Not Given .Q[facility]H1M [facility] Medical Decision Making Medical Decision Making Differential Diagnoses: Differential diagnosis (Fibroids, ectopic, miscarriage, menorrhagia) Lab Attestation: I reviewed the patient's lab results. Discussion of test interpretation with radiology: Discussion of test interpretation with radiology EXAMINATION:? US PELVIS CLINICAL INFORMATION:? Vaginal bleeding in a 32-year-old female. COMPARISON: None TECHNIQUE: Ultrasound of the pelvis is performed using both transabdominal and transvaginal transducers along with Doppler. Transvaginal imaging is performed due to inadequate visualization transabdominally. FINDINGS: UTERUS AND CERVIX The anteflexed, anteverted uterus measures approximately 8.5 x 4.3 x 5 cm (mebfcp-[id number]-[id number] x AP x transverse dimension). The myometrial echotexture is normal. No evidence of leiomyoma. There are multiple clustered cysts along the endocervical canal. This could represent endocervical hyperplasia. No focal cervical lesion. The cervix is approximately 3 cm in length. The endometrium has normal echotexture and measures up to 1.3 cm AP. This has the appearance of a secretory phase of the endometrium. No focal endometrial lesion. ADNEXA: The right ovary is 2.6 x 2 x 1.9 cm, volume of 5.2 mL and left ovary 3.6 x 2.9 x 3.1 cm, volume of 17 mL. The left ovary is enlarged due to presence of a 2.5 cm dominant follicle. FREE FLUID: None. US/US pelvic and transvaginal IMPRESSION: *? No specific source of vaginal bleeding is identified. No evidence of uterine leiomyoma, endometrial polyp or endometrial fluid. *? Multiple small foci of cystic change along the cervix could represent endocervical hyperplasia. *? The ovaries are normal. The dominant follicle of the left ovary is 2.5 cm. Prescription medication was considered but ultimately not given after discussion with patient/family. (e.g., pain medication, antiviral, antibiotic): Prescriptions considered but not given I considered prescription management with: Pain Medication Additional Comments: I consider TXA however patient has chronic inflammatory demyelinating polyneuropathy, polyarthralgia, and type 1 diabetes. I was unsure if the medication would interfere with her neurological deficits. Will give Apri Chronic conditions affecting care (e.g., diabetes, HTN): Chronic conditions affecting care (e.g., diabetes, HTN) Additional Comments: Type 1 diabetes, chronic inflammatory demyelinating polyneuropathy, chronic anemia Discharge Plan Discharge Clinical Impression: Menorrhagia Patient Disposition: Home, Self-Care Instructions: Dysfunctional Uterine Bleeding (ED), Menorrhagia (ED) Additional Instructions: You were evaluated for dysfunctional uterine bleeding. Your pelvic ultrasound showed some abnormalities that need to be investigated by her combination machine tool setter. No specific source of vaginal bleeding was identified however you do have some cystic changes along with cervix that could represent endocervical hyperplasia. Please take Apri daily, this is a control to help control uterine bleeding. Please call Dr. Urias and request an appointment for evaluation. Rest, drink plenty of fluids. Thank you for choosing this emergency department for evaluation. Please follow-up with primary care physician as needed. Return to the emergency department for any new, concerning, or worsening symptoms. Prescriptions: New desogestrel-ethinyl estradiol [Apri] 0.15-0.03 mg tablet 1 tab PO DAILY Qty: 84 0RF No Action ascorbic acid (vitamin C) [Vitamin C] 500 mg tablet 500 mg PO DAILY Qty: 30 11RF ibuprofen 800 mg tablet 800 mg PO Q8H Qty: 30 0RF ferrous sulfate 325 mg (65 mg iron) tablet 325 mg PO DAILY Qty: 30 11RF duloxetine 20 mg capsule,delayed release(DR/EC) 20 mg PO DAILY insulin lispro [Admelog U-100 Insulin lispro] 100 unit/mL solution 1 sliding scale dose subcut USEASDIRECTD Referrals: Bandar Urias MD [Physician] - 3 days (Menorrhagia, multiple small foci of cystic changes along the cervix) Interventions: ED Discharge Assessment Last Done: 10/01/22 17:28 Discharge Date/Time: 10/01/22 17:29
[2022-10-01 16:49] VITALS: BP 137/82; PULSE 92; RESP 20; TEMP 37; O2SAT 100
[2022-10-01 17:19] VITALS: BP 150/94; PULSE 88; RESP 20; TEMP 36.6; O2SAT 100
== END 2022-10-01 17:29 | disposition home or self-care (01) ==
PROVIDERS: Physician Assistant; Emergency Provider Emergency Medicine; PCP Internal Medicine
DX: N92.0 Excessive and frequent menstruation with regular cycle (principal); N93.8 Other specified abnormal uterine and vaginal bleeding; R42 Dizziness and giddiness; Z79.899 Other long term (current) drug therapy
CPT/HCPCS: 36415; 76830; 76856; 80048; 80076; 83690; 83735; 84702; 85025; 99283; 99284

== ENCOUNTER 2022-11-17 10:55 | Outpatient (REF) | payer OTHER, SELFPAY ==
[2022-11-17 15:17] LABS: CT PCR NOT DETECTED (Not Detect.); NG PCR NOT DETECTED (Not Detect.)
[2022-11-19 17:58] LABS: HPV mRNA E6/E7 rflx Not Detected (Not Detected)
== END 2022-11-17 10:56 | disposition home or self-care (01) ==
LOC: HO.LNP 10:55
PROVIDERS: PCP Internal Medicine; Visit Provider Obstetrics & Gynecology
DX: Z12.4 Encounter for screening for malignant neoplasm of cervix (principal); Z11.3 Encounter for screening for infections with a predominantly sexual mode of transmission; Z11.51 Encounter for screening for human papillomavirus (HPV); N93.9 Abnormal uterine and vaginal bleeding, unspecified
CPT/HCPCS: 0353U; 87624; 88142; 99202

== ENCOUNTER → 2022-11-25 09:05 | Outpatient (BNVA) | payer OTHER, SELFPAY | PROVIDERS: PCP Internal Medicine; Visit Provider Obstetrics & Gynecology | DX: Z13.89 Encounter for screening for other disorder (principal) ==

== ENCOUNTER 2023-05-10 15:46 | Outpatient (REF) | payer OTHER, SELFPAY | END 2023-05-10 15:47 | disposition home or self-care (01) | LOC: HO.LNP 15:46 | PROVIDERS: PCP Internal Medicine; Visit Provider Obstetrics & Gynecology | DX: N98.9 Complication associated with artificial fertilization, unspecified (principal) | CPT/HCPCS: 58100; 81025; 88305 ==

== ENCOUNTER 2023-05-10 15:46 | Outpatient (AMB) | payer OTHER, SELFPAY ==
--- NOTE | 2023-05-10 15:48 | MHC.OFFVIS ---
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 Gas Required: No Information Interpreted: non-clinical & clinical Outside Sales Representative: Outside Sales Representative Present (Aidyn) Allergies sertraline [From ZOLOFT] Allergy (Unknown, Verified 05/10/23 15:58) SEIZURE gabapentin Adverse Reaction (Unknown, Verified 05/10/23 15:58) depression Is last menstrual period known: No (Last period in February not sure of the date) Post menopausal: No Patient : No PFSH Medical History CIDP (chronic inflammatory demyelinating polyneuropathy) Diabetes mellitus type 1 Distal radius fracture Hypercholesterolemia Surgical History H/O right wrist surgery Family History Mother Fibromyalgia Father High cholesterol Diabetes Sister No problems noted. Son No problems noted. Social History Alcohol intake: never Patient Tobacco Use Status: Never used Tobacco e-Cigarette/Vaping Use: Never Used Female Reproductive History Menstrual Age of Menarche: 11 control method: none Date of last pap smear: 11/17/22 (negative) Office Procedures Endometrial Biopsy Details: The patient was counseled regarding the indication and benefits of endometrial sampling to rule out endometrial pathology including not limited to endometrial hyperplasia or endometrial cancer and others; The alternatives (Either do nothing vs. hysteroscopy D&C) & the risks were discussed with the patient including but not limited: pain, uterine perforation, bleeding, infection, possible injury to bladder, bowel, ureter, possible need for blood transfusion with all its possible risks. The patient verbalized understanding all questions answered and signed consent. Urine test done in the office was negative The patient was placed into the dorsal lithotomy position; a speculum was inserted in the vagina. Using aseptic technique for the procedure, the cervix was cleansed with Betadine. The anterior lip of the cervix was grasped with a single tooth tenaculum. The uterus was sounded to 7 cm with a 4 mm Pipelle was used. Tissues samples were obtained and placed in formalin, in a patient labeled container and sent to the pathology department. At the end of the procedure, there was minimal bleeding noted The patient tolerated the procedure well and was discharged in good condition with the following instructions: Nothing in the vagina until the bleeding stops. No sex until the bleeding stops, to call if any of the following occurs: fever (>100.4), flu-like symptoms, abdominal pain, heavy bleeding, four smelling vaginal discharge. The patient was instructed to schedule a Follow up appointment in 2 weeks to discuss pathology results of the biopsy and treatment options. This note was generated with a voice recognition program. Some errors may have been overlooked during the review of this note. Sometimes these errors may affect the content or meaning of a given sentence. [id number] Biopsy Results AMB Test Urine AMB Test Urine Negative Last Edit by ALYSIA Hughes on 05/10/23 16:01 Assessment & Plan Assessment & Plan Orders: Orders AMB HCG Urine Test Today Z32.02 - Encounter for test, result negative AMB Endometrial Biopsy Today N93.9 - Abnormal uterine and vaginal bleeding, unspecified Coding Level of Care Code Procedure Only Diagnoses CPT Codes Endometrial Biopsy - CPT: 72867-[id number] Biopsy ([id number])
[2023-05-10 15:58] VITALS: BP 124/64; BMI 35.5
== END 2023-05-11 12:12 | disposition home or self-care (01) ==
LOC: HO.HWS 15:46
PROVIDERS: PCP Internal Medicine; Visit Provider Obstetrics & Gynecology
DX: N93.9 Abnormal uterine and vaginal bleeding, unspecified (principal); Z32.02 Encounter for pregnancy test, result negative
CPT/HCPCS: 58100

== ENCOUNTER 2023-05-27 16:44 | Outpatient (AMB) | payer OTHER, SELFPAY ==
--- NOTE | 2023-05-27 16:44 | A.OFFPC_ITS ---
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 Finisher Required: No Allergies sertraline [From ZOLOFT] Allergy (Unknown, Verified 05/27/23 16:53) SEIZURE gabapentin Adverse Reaction (Unknown, Verified 05/27/23 16:53) depression Medication List - Last Reconciled 05/27/23 by ARSALAN Lind ascorbic acid (vitamin C) (Vitamin C) 500 mg PO DAILY duloxetine 20 mg PO DAILY insulin lispro (Admelog U-100 Insulin lispro) 1 sliding scale dose subcut USEAS DIRECTD Tobacco use date assessed: 05/27/23 HPI swelling in hands and feet HPI Details Patient is a 33-year-old female presents today for an office visit due to swelling in hands and feet for the past [address] Marques. Medical history significant for hypercholesterolemia, anxiety, depression, diabetes type 1-followed by [facility] endocrinology-on insulin pump, DARIANA positive, CIDP among others. Patient reports that she started noticed swelling in her hands and feet 3 days ago, she did not have this in the past, she also reports that today she has noted that her face is more puffy. She denies shortness of breath or chest pain, no fever or chills, no joint pains. No any new changes in her life, she reports coloring her hair 4 days ago. Patient reports that she has been walking more in the past 1 week. Patient also reports gaining weight lately. Reports blood sugars at home ranging between 180 and 250. [facility] Medical History CIDP (chronic inflammatory demyelinating polyneuropathy) Diabetes mellitus type 1 Distal radius fracture Hypercholesterolemia Surgical History H/O right wrist surgery Family History Mother Fibromyalgia Father High cholesterol Diabetes Sister No problems noted. Son No problems noted. Social History Alcohol intake: never Patient Tobacco Use Status: Never used Tobacco e-Cigarette/Vaping Use: Never Used Cognitive needs: No Hearing needs: No Vision needs: No Female Reproductive History Menstrual Age of Menarche: 11 Questionnaire Thrive Questionnaire Date Thrive assessed: 05/27/23 AUDIT C Alcohol Use Questionnaire (AUDIT-C) 1. How often do you have a drink containing alcohol?: Never 2. How many drinks containing alcohol do you have on a typical day when you are drinking?: 1 or 2 (0) 3. How often do you have six or more drinks on one occasion?: Never Total Score: 0 Score Reviewed/Action Taken: No GISSELLE-7 AMB Questionnaire GISSELLE-7 Date GISSELLE - 7 assessed: 05/27/23 Source: Developed by Drs. Timothy Gray, Addie Bay, Derick Jones and colleagues, with an educational lala from [employer]. Review of Systems Const Denies body aches, Denies chills, Denies fever(s) and Denies headache(s) Eyes Denies change in vision ENT Denies dizziness, Denies otalgia, Denies headache(s), Denies nasal discharge, Denies sinus pain and Denies sore throat Card Details: Swelling in hands, feet, puffy face Denies chest pain, Denies edema, Denies lightheadedness and Denies dyspnea Resp Denies cough, Denies dyspnea and Denies wheezing GI Denies constipation, Denies diarrhea, Denies nausea and Denies vomiting Denies dysuria Musc Denies myalgias, Denies arthralgias, Denies numbness and Denies tingling Skin/Breast Denies rash Neuro Denies dizziness, Denies headache(s), Denies numbness and Denies tingling Aller/Immun Denies wheezing Physical exam (Primary Care) Vital Signs: Last Vital Signs Pulse 90 05/27/23 16:45 BP 120/72 05/27/23 16:45 Pulse Ox 99 05/27/23 16:45 Oxygen Delivery Method Room Air 05/27/23 16:45 BMI result Body Mass Index 34.7 Tobacco/Smoking Status: Tobacco use Status Tobacco use date assessed 05/27/23 05/27/23 16:50 Patient Tobacco Use Status Never used Tobacco 05/27/23 16:50 e-Cigarette/Vaping Use Never Used 05/27/23 16:50 Thrive Assessment: Date of Thrive Assessment Date Thrive assessed 05/27/23 05/27/23 16:50 Const General: cooperative and no acute distress Orientation/consciousness: patient oriented x3 HENMT Head: Yes normocephalic and Yes atraumatic Ears: TM's normal bilaterally Face and sinus: Yes sinuses nontender Mouth: oropharynx normal and moist mucous membranes Throat: Yes posterior oropharynx normal Eyes Pupils: Equal, round and reactive pupils present Neck Neck: Yes normal visual inspection, Yes full ROM and Yes no lymphadenopathy Thyroid: other (Anterior and bilateral neck fullness noted) Resp Effort & Inspection: normal respiratory effort and able to speak in complete sentences Auscultation: clear to auscultation bilaterally, no crackles, no rales, no rhonchi and no wheezes Cardio Rate: regular rate Rhythm: regular rhythm Heart sounds: S1 normal heart sound present, S2 normal heart sound present and no murmurs Peripheral pulses: radial pulses present bilateral GI Auscultation: normal bowel sounds Skin General skin exam: no rashes or lesions noted Neuro General: patient oriented x3 Cranial nerves: Yes Equal, round and reactive pupils present Gait exam (Neuro): Normal gait present Extrem Other: Trace swelling noted to hands L>R Trace swelling noted to bilateral lower extremity distal aspect R>L Very mild swelling noted to face, patient reports that she feels like her face is more puffy General: Yes full ROM Assessment and Plan Assessment & Plan (1) Neck fullness: Code(s): R22.1 - Localized swelling, mass and lump, neck Plan: Will obtain thyroid ultrasound and check thyroid blood work - physical exam with anterior neck fullness Patient reports gaining weight recently (2) Edema of both legs: Code(s): R60.0 - Localized edema Plan: Blood work has been ordered including BNP Encouraged patient to elevate bilateral lower extremities and limit salt consumption Patient also can consider compression stockings on during the day and off at night Signs and symptoms reviewed when to notify provider or go to the emergency department (3) Diabetes mellitus type 1: Code(s): E10.9 - Type 1 diabetes mellitus without complications Qualifiers: Diabetes mellitus complication status: without complication Qualified Code(s): E10.9 - Type 1 diabetes mellitus without complications Plan: Patient is followed by [facility] Endocrinology, she will call for an appointment Patient is on insulin pump Will check A1c Plan Follow-up with PCP in 4 months for physical exam Orders: Orders B Type Natriuretic Peptide Today R60.0 - Localized edema Comprehensive Met. Panel Today R60.0 - Localized edema TSH reflex Free T4 Today R60.0 - Localized edema Complete Blood Count Auto Diff Today R60.0 - Localized edema US thyroid Today R22.1 - Localized swelling, mass and lump, neck Hemoglobin A1c Today E10.9 - Type 1 diabetes mellitus without complications Coding Level of Care Code Est Pt Level 4 (69040) Diagnoses Neck fullness R22.1 Edema of both legs R60.0 Diabetes mellitus type 1 E10.9 Diabetes mellitus complication status: without complication
[2023-05-27 16:45] VITALS: BP 120/72; PULSE 90; O2SAT 99; BMI 34.7
== END 2023-05-27 17:09 | disposition home or self-care (01) ==
PROVIDERS: PCP Internal Medicine; Visit Provider Nurse Practitioner Family
DX: R22.1 Localized swelling, mass and lump, neck (principal); E10.9 Type 1 diabetes mellitus without complications
CPT/HCPCS: 99214

== ENCOUNTER 2023-05-27 17:11 | Outpatient (REF) | payer OTHER, SELFPAY ==
[2023-05-27 17:25] LABS: MANUAL DIFF FLAG NO
[2023-05-27 17:51] LABS: Basophils Absolute Auto 0.1 X10*3/uL (0.0-0.2); Basophils Percent Auto 0.6 % (0-2); Eosinophils Absolute Auto 0.2 X10*3/uL (0.0-0.4); Eosinophils Percent Auto 2.1 % (0-4); Hematocrit 34.7 % (37.0-47.0); Hemoglobin 9.7 g/dl (12.0-16.0); Imm Gran Abs Auto 0.02 X10*3/uL (0.00-0.03); Imm Gran Pct Auto 0.2 % (0.0-0.4); Lymphocytes Absolute Auto 2.7 X10*3/uL (1.2-4.9); Lymphocytes Percent Auto 31.9 % (20-40); Mean Corpuscular Hemoglobin 20.9 pg (27.0-33.0); Mean Corpuscular Volume 74.6 fL (80.0-98.0); Mean Platelet Volume 9.9 fL (9.4-12.3); Monocytes Absolute Auto 0.6 X10*3/uL (0.1-1.2); Monocytes Percent Auto 6.7 % (2-11); Neutrophils Percent Auto 58.5 % (45-73); Platelet Count 380 X10*3/uL (160-400); Red Blood Count 4.65 X10*6/uL (4.20-5.50); White Blood Count 8.5 X10*3/uL (4.8-10.8)
[2023-05-27 18:16] LABS: B Type Natriuretic Peptide 16 pg/mL (<100)
[2023-05-27 18:25] LABS: Alanine Aminotransferase 41 U/L (0-31); Albumin Level 3.5 g/dL (3.5-5.0); Alkaline Phosphatase 138 U/L (39-117); Anion Gap 15 (12-20); Aspartate Amino Transferase 46 U/L (5-31); Bilirubin Total 0.3 mg/dL (0.0-1.0); Blood Urea Nitrogen 9 mg/dL (9-16); Calcium 8.9 mg/dL (8.4-10.2); Carbon Dioxide 22 mmol/L (22-29); Chloride 105 mmol/L (96-108); Estimated Glomerular Filt Rate > 60; Glucose Random 193 mg/dL (60-115); Potassium 4.4 mmol/L (3.3-5.1); Sodium 138 mmol/L (135-145); Total Protein 7.3 g/dL (6.5-8.0)
[2023-05-27 18:31] LABS: TSH reflex Free T4 2.31 uIU/mL (0.32-4.0)
[2023-05-28 03:48] LABS: Estimated Average Glucose 148 mg/dL; Hemoglobin A1c % 6.8 %
== END 2023-05-27 17:12 | disposition home or self-care (01) ==
LOC: HO.LAB 17:11
PROVIDERS: PCP Internal Medicine; Visit Provider Nurse Practitioner Family
DX: R60.0 Localized edema (principal); E10.9 Type 1 diabetes mellitus without complications
CPT/HCPCS: 36415; 80053; 83036; 83880; 84443; 85025

== ENCOUNTER 2023-07-27 15:15 | Outpatient (AMB) | payer OTHER, SELFPAY ==
--- NOTE | 2023-07-27 15:23 | MHC.OFFVIS ---
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 The pathology showed the following: Endometrium, biopsy: Benign proliferative endometrium with squamous morulae and focal stromal collapse/breakdown; no atypia or carcinoma (see comment). Comment: Some of the fragments may be derived from benign polyps. Squamous morulae may be associated with hyperplastic or neoplastic endometrium and clinical follow-up is warranted [facility] Medical History Distal radius fracture Hypercholesterolemia Diabetes mellitus type 1 CIDP (chronic inflammatory demyelinating polyneuropathy) Surgical History H/O right wrist surgery Family History Mother Fibromyalgia Father High cholesterol Diabetes Sister No problems noted. Son No problems noted. Social History Alcohol intake: never Patient Tobacco Use Status: Never used Tobacco e-Cigarette/Vaping Use: Never Used Cognitive needs: No Hearing needs: No Vision needs: No Female Reproductive History Menstrual Age of Menarche: 11 Date of last menstrual period: 08/21/20 Total pregnancies: 2 Full term: 2 Review of Systems Card Reports as per HPI and Reports no additional complaints Resp Reports as per HPI and Reports no additional complaints GI Reports as per HPI and Reports no additional complaints Reports as per HPI Physical Exam Const General: cooperative, healthy appearing and comfortable Chest Chest palpation & inspection: normal inspection of the chest and normal palpation of entire chest wall Breast/axilla inspection: normal inspection of the breasts and normal inspection of the axillae Breast/axilla palpation: normal palpation of the breasts, normal palpation of the axillae and no axillary lymphadenopathy Resp Effort & Inspection: normal respiratory effort Auscultation: clear to auscultation bilaterally Percussion: percussion normal Cardio Palpation: normal PMI Rate: regular rate Rhythm: regular rhythm Heart sounds: no murmurs and no rubs Peripheral pulses: Peripheral pulses 2+ throughout GI Inspection: Yes normal to inspection Palpation (GI): Soft to palpation, nontender, no guarding, not rigid and No hepatosplenomegaly present Percussion: Yes normal to percussion Auscultation: normal bowel sounds Rectal Exam - Female: deferred Assessment & Plan Assessment & Plan (1) Abnormal uterine bleeding: Comment: Squamous morules on EMB rule out endometrial hyperplasia malignancy or polyp Code(s): N93.9 - Abnormal uterine and vaginal bleeding, unspecified Plan: Discussed with the patient the results of endometrial pathology, squamous morules and the possible associated endometrial hyperplasia malignancy or polyp, recommended hysteroscopy D&C possible polypectomy/myomectomy. Will proceed with hysteroscopy D&C possible polypectomy/myomectomy. Discussed with the patient the procedure , all benefits and risks including but not limited to inability to complete the procedure , bleeding, infection, possible need for blood transfusion with all its risk ( HIV,syphilis, Hepatitis, anaphylaxis shock, others..), injury to bladder, rectum, possible need for laparoscopy/laparotomy or hysterectomy. The patient verbalized understanding and signed the consent. Instructions given the patient to schedule a 2 week postoperative appointment Coding Level of Care Code Est Pt Level 3 (69443) Diagnoses Abnormal uterine bleeding N93.9
[2023-07-27 15:25] VITALS: BP 112/68; BMI 34.7
== END 2023-07-27 15:38 | disposition home or self-care (01) ==
PROVIDERS: PCP Internal Medicine; Visit Provider Obstetrics & Gynecology
DX: N93.9 Abnormal uterine and vaginal bleeding, unspecified (principal)
CPT/HCPCS: 99213

== ENCOUNTER → 2023-07-27 15:15 | Outpatient (BNVA) | payer OTHER, SELFPAY | PROVIDERS: PCP Internal Medicine; Visit Provider Obstetrics & Gynecology | DX: N93.9 Abnormal uterine and vaginal bleeding, unspecified (principal) | CPT/HCPCS: 99212 ==

== ENCOUNTER 2023-08-12 07:28 | Day surgery (SDC) | payer OTHER, SELFPAY ==
[2023-08-10 16:13] VITALS: BMI 34.7
--- NOTE | 2023-08-11 10:35 | P.CONAN_ITS ---
Documented by User: Tabitha Thompson NP 08/11/23 10:36 HPI - Anesthesia Eval Consult details Narrative: 33yo F for D&C Hysteroscopy possible myomectomy / polypectomy PMFSH Active Problems Active Problems: All Active Problems (Updated 07/27/23 @ 15:34 by Bandar Urias MD) Elevated LFTs (Acute) Neck fullness (Acute) Edema of both legs (Acute) Abnormal uterine bleeding (Acute) Bilateral hand pain (Acute) DARIANA positive (Acute) CIDP (chronic inflammatory demyelinating polyneuropathy) (Acute) Polyarthralgia (Acute) Anemia (Acute) Knee pain, left (Acute) Diabetes mellitus type 1 (Acute) Anxiety and depression (Acute) Hypercholesterolemia (Acute) Past Medical History Medical History Distal radius fracture Hypercholesterolemia Diabetes mellitus type 1 CIDP (chronic inflammatory demyelinating polyneuropathy) Family History Family History Mother Fibromyalgia Father High cholesterol Diabetes Sister No problems noted. Son No problems noted. Surgical History Surgical History H/O right wrist surgery Social History Social History Alcohol intake: never Patient Tobacco Use Status: Never used Tobacco e-Cigarette/Vaping Use: Never Used Are you DNR?: No Advance Directives: No Advance Directives Information Provided: Yes Nutrition Risks: No Nutritional Risk FDLMP: 07/13/23 Cognitive needs: No Hearing needs: No Vision needs: No Meds Allergies Allergy/AdvReac Type Severity Reaction Status Date / Time sertraline [From ZOLOFT] Allergy Unknown SEIZURE Verified 08/12/23 07:48 gabapentin AdvReac Unknown depression Verified 08/12/23 07:48 Home Medications Medication Instructions Recorded Confirmed Last Taken Type duloxetine 20 mg capsule,delayed 20 mg PO DAILY 10/14/20 08/12/23 Unknown History release insulin lispro 100 unit/mL 1 sliding scale dose subcut 10/14/20 08/12/23 Unknown History subcutaneous solution (Admelog USEASDIRECTD U-100 Insulin lispro) lorazepam 0.5 mg tablet 0.5 mg PO DAILY PRN Anxiety 08/12/23 08/12/23 Unknown History Exam Exam Date and Time: August 11, 2023 1035 Height,Weight and Vital Signs: Height 5 ft 2 in Weight 85.984 kg Assessment and Plan Assessment Anesthesia Assessment: Chart Reviewed Documented by User: Chad Ledesma MD 08/12/23 08:55 PMFSH Past Medical History Medical History Distal radius fracture Hypercholesterolemia Diabetes mellitus type 1 CIDP (chronic inflammatory demyelinating polyneuropathy) Patient : No Family History Family History Mother Fibromyalgia Father High cholesterol Diabetes Sister No problems noted. Son No problems noted. Family history of problems with anesthesia: No Surgical History Surgical History H/O right wrist surgery History of Problems with Anesthesia: No Social History Social History Alcohol intake: never Patient Tobacco Use Status: Never used Tobacco e-Cigarette/Vaping Use: Never Used Are you DNR?: No Advance Directives: No Advance Directives Information Provided: Yes Nutrition Risks: No Nutritional Risk FDLMP: 07/13/23 Cognitive needs: No Hearing needs: No Vision needs: No Meds Allergies Allergy/AdvReac Type Severity Reaction Status Date / Time sertraline [From ZOLOFT] Allergy Unknown SEIZURE Verified 08/12/23 07:48 gabapentin AdvReac Unknown depression Verified 08/12/23 07:48 Home Medications Medication Instructions Recorded Confirmed Last Taken Type duloxetine 20 mg capsule,delayed 20 mg PO DAILY 10/14/20 08/12/23 Unknown H istory release insulin lispro 100 unit/mL 1 sliding scale dose subcut 10/14/20 08/12/23 Unknown History subcutaneous solution (Admelog USEASDIRECTD U-100 Insulin lispro) lorazepam 0.5 mg tablet 0.5 mg PO DAILY PRN Anxiety 08/12/23 08/12/23 Unknown History Exam Airway Mallampati Class: II TM Dist: >3cm Neck ROM: Full Heart: ok Lungs: ok Assessment and Plan Final Anesthetic Review Family History of Problems with Anesthesia: No History of Problems with Anesthesia: No NPO: Yes ASA Class: III Final Preanesthetic Review: No Changes in Pt Med Stat, Meds/Allgs Chart Reviewed, Consent Obtained/Reviewed and Anes Risks/Benef Reviewed Patient Risk: Intermediate Procedure Risk: Low Anesthetic Plan Anesthetic Plan: GA and Agree w/ Assess. and Plan Disposition: Standard PACU
[2023-08-12 07:50] LABS: UPreg QC Valid YES; Urine Pregnancy NEGATIVE (NEGATIVE)
[2023-08-12] MEDS: Lactated Ringers 1,000 ML 100 ML IVCONT (07:56)
[2023-08-12 08:11] VITALS: BP 126/78; PULSE 90; RESP 18; TEMP 36.8; O2SAT 98
[2023-08-12 08:11] LABS: Glucose, Whole Blood 124 mg/dL (60-115)
--- NOTE | 2023-08-12 08:40 | MHC.SHP ---
Pre-Procedural Eval Section A Date of Service: 08/12/23 The patient is an INPATIENT: No Changes since office visit: No Cold of Flu in the past 2 weeks, No New Medical Problems, No Changes in Medication and No Patient answered all questions The History & Physical has been completed within 30 days and I have reviewed it.: Yes Section B Chief Complaint: Abnormal uterine and vaginal bleeding, unspecified Allergies: Allergies Allergy/AdvReac Type Severity Reaction Status Date / Time sertraline [From ZOLOFT] Allergy Unknown SEIZURE Verified 08/12/23 07:48 gabapentin AdvReac Unknown depression Verified 08/12/23 07:48 Plan Diagnosis/Plan: Unchanged I have reviewed the history and physical and performed a pertinent physical examination on my patient. No changes have occurred unless specified. Time Spent With Patient Time: Total time managing care of this patient today ____ minutes.
--- NOTE | 2023-08-12 09:40 | P.BOP_ITS ---
Brief Operative Note Date of Service: 08/12/23 Pre-op diagnosis: AUB with endometrial polyp on EMB pathology Post-op diagnosis: same (Endometrial polyp) Procedure: Hysteroscopy D&C, Polypectomy Surgeon: Bandar Urias MD Anesthesia: GLMA Was an Textile Designs Sales Representative used for this Procedure?: No Estimated blood loss (mL): 0 Pathology: other (Endometrial Scrapping. Polyp) Condition: stable Disposition: PACU
--- NOTE | 2023-08-12 09:41 | P.OP_ITS ---
Operative Note Operative Note Date of Service: 08/12/23 Narrative: Preop Diagnosis: AUB with Endometrial polyp on EMB pathology Operation: Diagnostic Hysteroscopy, Dilataion & Curettage and polypectomy Post Op Diagnosis: Endometrial Polyp QBL: Minimal Anesthesia: GLMA Surgeon: Bandar Urias MD Wood Science Professor: None Complication: None Pathology: Endometrial Scrapings, Endometrial polyp Procedure: The patient was put in the dorsal lithotomy position, scrubbed, and draped in the usual manner. A sterile speculum was inserted in the patient's vagina. The anterior lip of the cervix was grasped with a single tooth tenaculum. The cervix was dilated up to 5 mm, then the scope was inserted in the patient's uterus. Inspection revealed endometrial polyp. The Myosure Reach device was used; it was introduced through the operative channel and polypectomy done with no complications. The scope was then taken out from the uterine cavity, sharp curettings was carried on with minimal to moderate amount of tissues retrieved. At the end of the procedure, all instruments were taken out of the patient uterine and vaginal cavity. The single tooth tenaculum was removed and homeostasis was assured using pressure,. The patient tolerated the procedure well and was transferred to the PACU in a stable condition.
[2023-08-12 09:46] VITALS: BP 115/66; PULSE 81; RESP 12; TEMP 36.4; O2SAT 94
[2023-08-12 09:51] VITALS: BP 118/67; PULSE 79; RESP 14; O2SAT 96
[2023-08-12 09:56] VITALS: BP 115/71; PULSE 80; RESP 16; O2SAT 95
[2023-08-12 10:01] VITALS: BP 118/72; PULSE 85; RESP 16; TEMP 36.5; O2SAT 97
[2023-08-12 10:16] VITALS: BP 110/65; PULSE 91; RESP 16; TEMP 36.6; O2SAT 96
== END 2023-08-12 10:45 | disposition home or self-care (01) ==
PROVIDERS: Nurse Practitioner; PCP Internal Medicine; Visit Provider Obstetrics & Gynecology
PROC: 0UDB8ZZ Extraction of Endometrium, Via Natural or Artificial Opening Endoscopic (ICD-10-PCS; CPT 58558; principal; 2023-08-12 09:00)
DX: N93.9 Abnormal uterine and vaginal bleeding, unspecified (principal); N84.0 Polyp of corpus uteri; E78.00 Pure hypercholesterolemia, unspecified; G61.81 Chronic inflammatory demyelinating polyneuritis; E10.9 Type 1 diabetes mellitus without complications; Z79.4 Long term (current) use of insulin; Z88.8 Allergy status to other drugs, medicaments and biological substances; Z79.899 Other long term (current) drug therapy
CPT/HCPCS: 58558; 81025; 82947; 88305; J2250; J3010

== ENCOUNTER → 2023-08-12 07:28 | Outpatient (BNV) | payer OTHER, SELFPAY | PROVIDERS: PCP Internal Medicine; Visit Provider Obstetrics & Gynecology | DX: N84.1 Polyp of cervix uteri (principal); N93.9 Abnormal uterine and vaginal bleeding, unspecified | CPT/HCPCS: 58558 ==

== ENCOUNTER 2023-09-13 15:23 | Outpatient (AMB) | payer OTHER, SELFPAY ==
--- NOTE | 2023-09-13 15:38 | A.OFFVIS_ITS ---
Intake Vital Signs 09/13/23 15:39 Height 5 ft 2 in BP 110/70 Intake Visit Reasons: post op Allergies sertraline [From ZOLOFT] Allergy (Unknown, Verified 09/13/23 15:43) SEIZURE gabapentin Adverse Reaction (Unknown, Verified 09/13/23 15:43) depression HPI HPI Comments History of Present Illness Details The patient is presenting post hysteroscopy D&C no complaints minimal vaginal bleeding no feverishness chills or abdominal pain. The pathology showed the following: A. Endometrial polyp, resection: Fragments of benign mixed endometrial/endocervical polyp; no atypia or carcinoma. B. Endometrium, curettage: Fragmented proliferative endometrium with stromal collapse and focal gland crowding; no atypia or carcinoma (see comment). Comment: (B): Focal hyperplasia cannot be complet alfredo excluded and follow-up is warranted [facility] Medical History Distal radius fracture Hypercholesterolemia Diabetes mellitus type 1 CIDP (chronic inflammatory demyelinating polyneuropathy) Surgical History H/O right wrist surgery Family History Mother Fibromyalgia Father High cholesterol Diabetes Sister No problems noted. Son No problems noted. Alcohol intake: never Patient Tobacco Use Status: Never used Tobacco e-Cigarette/Vaping Use: Never Used Cognitive needs: No Hearing needs: No Vision needs: No Female Reproductive History Menstrual Age of Menarche: 11 Review of Systems Const All systems reviewed & are unremarkable except as noted in HPI and below Reports as per HPI and Reports no additional complaints GI Reports no additional complaints Reports no additional complaints Physical Exam Vital Signs: Last Vital Signs BP 110/70 09/13/23 15:39 Assessment & Plan Assessment & Plan (1) Abnormal uterine bleeding: Comment: Squamous morules on EMB D&C pathology= endometrial crowding, hyperplasia could not be ruled out, no atypia Code(s): N93.9 - Abnormal uterine and vaginal bleeding, unspecified Plan: Discussed with the patient the pathology results, endometrial crowding , endometrial hyperplasia could not be ruled out, with no atypia, in addition to the risk of progression, the persistence and regression rate . Options of treatment discussed with the patient included surgical or progestin, the patient is interested future conception. All pros and cons, risks and benefits of each were discussed with the patient. Patient decided to proceed with progestin treatment, including cyclic progesterone versus Mirena IUD. All pros and cons risks and benefits of each were discussed with the patient, the patient decided to proceed with Mirena IUD. so a more detailed discussion was carried on including mechanism of action, risks (infection, uterine perforation, failure with ectopic , septic AB, ovarian cyst and pelvic pain, increased breast cancer risk and others) benefits (efficient contraceptive method, others), GC/CG were taken recent and the patient was asked to schedule appointment to [facility] for IUD insertion since her LMP was 4 days ago. The patient was instructed to call if abnormal menses recurs, will proceed with an endometrial biopsy then to r/o progression of the endometrial pathology, otherwise the patient was instructed to follow up in 3 & 6 months for a repeat endometrial biopsy. Coding Level of Care Code Est Pt Level 3 (09502) Diagnoses Abnormal uterine bleeding N93.9
[2023-09-13 15:39] VITALS: BP 110/70
== END 2023-09-13 16:17 | disposition home or self-care (01) ==
LOC: HO.HWS 15:23
PROVIDERS: PCP Internal Medicine; Visit Provider Obstetrics & Gynecology
DX: N93.9 Abnormal uterine and vaginal bleeding, unspecified (principal)
CPT/HCPCS: 99213

== ENCOUNTER → 2023-09-13 15:23 | Outpatient (BNVA) | payer OTHER, SELFPAY | PROVIDERS: PCP Internal Medicine; Visit Provider Obstetrics & Gynecology | DX: N93.9 Abnormal uterine and vaginal bleeding, unspecified (principal) | CPT/HCPCS: 99212 ==

== ENCOUNTER 2023-09-14 14:25 | Outpatient (REF) | payer OTHER, SELFPAY ==
[2023-09-14 18:35] LABS: CT PCR NOT DETECTED (Not Detect.); NG PCR NOT DETECTED (Not Detect.)
== END 2023-09-14 14:26 | disposition home or self-care (01) ==
LOC: HO.LNP 14:25
PROVIDERS: PCP Internal Medicine; Visit Provider Obstetrics & Gynecology
DX: Z30.430 Encounter for insertion of intrauterine contraceptive device (principal)
CPT/HCPCS: 0353U; 58300; 81025; J7298

== ENCOUNTER 2023-09-14 14:25 | Outpatient (AMB) | payer OTHER, SELFPAY ==
--- NOTE | 2023-09-14 14:28 | A.OFFVIS_ITS ---
Intake Vital Signs 09/14/23 14:39 Height 5 ft 2 in Weight 189 lb BMI 34.6 BP 110/72 Intake Visit Reasons: mirena insertion Restaurant Line Server Required: No Information Interpreted: non-clinical & clinical Agricultural Extension Specialist: Agricultural Extension Specialist Present (Aidyn) Allergies sertraline [From ZOLOFT] Allergy (Unknown, Verified 09/14/23 14:41) SEIZURE gabapentin Adverse Reaction (Unknown, Verified 09/14/23 14:41) depression Is last menstrual period known: Yes Last menstrual period: 09/09/23 Post menopausal: No PFSH Medical History Distal radius fracture Hypercholesterolemia Diabetes mellitus type 1 CIDP (chronic inflammatory demyelinating polyneuropathy) Surgical History H/O right wrist surgery Family History Mother Fibromyalgia Father High cholesterol Diabetes Sister No problems noted. Son No problems noted. Alcohol intake: never Patient Tobacco Use Status: Never used Tobacco e-Cigarette/Vaping Use: Never Used Cognitive needs: No Hearing needs: No Vision needs: No Female Reproductive History Menstrual Age of Menarche: 11 Duration of menses: other Date of last menstrual period: 09/09/23 control method: none Total pregnancies: 2 Full term: 1 Number of Living Children: 1 Ab spontaneous: 1 Office Procedures IUD Insert/Removal Details Details: The patient is presenting for Mirena IUD insertion Urine test was done in the office and was negative; All the contraindications were excluded. The following possible complications were discussed with the patient: Intrauterine , Ectopic , Sepsis, Pelvic Infection, Irregular Bleeding and Amenorrhea, Perforation, Expulsion, Ovarian Cysts, Breast Cancer, The following adverse effects were discussed with the patient: alteration of menstrual bleeding pattern, including: unscheduled uterine bleeding decreased uterine bleeding increased scheduled uterine bleeding female genital tract bleeding ,amenorrhea , genital discharge , vulvovaginitis , breast pain , benign ovarian cyst and associated complications , dysmenorrhea , Gastrointestinal disorders abdominal/pelvic pain, headache/migraine , back pain , acne , depression Alternative options were discussed with the patient including but not limited: control pills, patch, NuvaRing, Depo-medroxyprogesterone acetate, Nexplanon, copper IUD, sterilization, vasectomy, others The procedure was explained in detail to patient , at the end patient signed the informed consent obtained. A no touch technique was used throughout the procedure. A speculum was placed into vagina and cervix was cleaned with betadine). A tenaculum was placed. A plastic sound was advanced through the external and internal os until it reached the fundus of the uterus, the depth was 8 cm. The sound was then withdrawn. The IUD was loaded in a sterile manner and advanced into position. The string was visualized and cut to 3 cm. Tenaculum site hemostatic. All instruments removed from vagina. Patient tolerated the procedure well. NO complications were noted. Patient was instructed to call for fever over 100.4, significant pain unrelieved by Motrin, IUD expulsion, heavy bleeding, or abnormal discharge. In addition, the following clinical considerations were discussed with the patient to call for removal: A stroke or heart attack ,Very severe or migraine headaches ,Unexplained fever ,Yellowing of the skin or whites of the eyes, as these may be signs of serious liver problems , or suspected , Pelvic pain or pain during sex ,HIV positive seroconversion in herself or her partner , Possible exposure to sexually transmitted infections Unusual vaginal discharge or genital sores , severe vaginal bleeding or bleeding that lasts a long time, or if she misses a menstrual period, Inability to feel Mirena's threads Counseled the patient that the IUD does not protect against STI's, recommended use of condoms for the first 7 days post insertion and explained to the patient that condoms are recommended for patients at risk for sexually transmitted infections. In for the patient that Mirena IUD is FDA approved for 8 years for contraception for 5 years for the treatment of heavy menses Instructed the patient to schedule a Follow up appointment in 4 to 6 weeks following insertion. This note was generated with a voice recognition program. Some errors may have been overlooked during the review of this note. Sometimes these errors may affect the content or meaning of a given sentence. 72134-VVP Insertion Procedure code (CPT) selection complete Office Meds Mirena 21 mcg/24 hours (8 yrs) 52 mg intrauterine device Performing Provider: Bandar Urias MD Performing Location: [facility] [place] [facility] Documented (not given) by: Bandar Urias MD on 09/14/23 15:30 Dose Route Admin Location Dispensed Lot Number Expiration Date NDC Security Control Room Officer 1 device intrauterine ea Assessment & Plan Assessment & Plan Orders: Orders AMB IUD Insertion/Removal - Practice Supplied Today Z30.430 - Encounter for insertion of intrauterine contraceptive device Medications: New Mirena (levonorgestrel) 1 device intrauterine ONCE 1 ea 0RF IUD insertion NS Z30.430 - Encounter for insertion of intrauterine contraceptive device Coding Level of Care Code Procedure Only CPT Codes Details - CPT: 57902-BUI Insertion ([id number])
[2023-09-14 14:39] VITALS: BP 110/72; BMI 34.6
== END 2023-09-14 15:33 | disposition home or self-care (01) ==
LOC: HO.HWS 14:25
PROVIDERS: PCP Internal Medicine; Visit Provider Obstetrics & Gynecology
DX: Z30.430 Encounter for insertion of intrauterine contraceptive device (principal); Z32.02 Encounter for pregnancy test, result negative
CPT/HCPCS: 58300

== ENCOUNTER → 2024-06-21 14:08 | Outpatient (RCR) | payer OTHER, SELFPAY ==
[2021-02-25 14:36] VITALS: BP 132/74; PULSE 90; RESP 18; TEMP 36.8; O2SAT 98; BMI 97.9
--- NOTE | 2021-02-25 14:43 | PM.HEMONCCN ---
Subjective - Subjective Chief complaint: Anemia Patient: new to practice Consult date: 02/25/21 Primary Care Provider: Raimundo Marques MD Medical Summary: Diagnosis: Iron deficiency anemia Diagnosed with CIDP, chronic inflammatory demyelinating polyneuropathy in 2013. Received prednisone and IVIG, in 2013. Rheumatological workup for rheumatoid arthritis/SLE in 2020. Elevated ESR and abnormal DARIANA. Mild iron deficiency noted with a transferrin saturation of 8%. HPI - Consult Narrative Reason for consult: Anemia Narrative: Yanick Corona is a 30 year old female referred for evaluation of anemia. She has a history of demyelinating polyneuropathy and is also being worked up currently for autoimmune disease, either rheumatoid arthritis or SLE. She reports symptoms of chronic fatigue ever since she was diagnosed with polyneuropathy that she developed during her several years ago. She was recently put on iron because of mild iron deficiency. She has not been told of anemia in the past. She has no acute symptoms such as exertional shortness of breath, dizziness, palpitation, loss of appetite or weight loss. She denies any hematochezia melena. No change in bowel habits. No family history of gastrointestinal malignancies. Review of Systems - Constitutional Reports as per HPI, Reports no additional constitutional complaints - Cardiovascular Reports no additional cardiovascular complaints - Respiratory Reports no additional respiratory complaints - Gastrointestinal Reports no additional gastrointestinal complaints [facility] Medical History: Medical History (Last Reviewed 02/25/21 @ 14:47 by Madisyn Elkins RN) CIDP (chronic inflammatory demyelinating polyneuropathy) Diabetes mellitus type 1 Distal radius fracture Hypercholesterolemia Family History: Family History (Last Reviewed 02/25/21 @ 14:47 by Madisyn Elkins RN) Mother Fibromyalgia Father High cholesterol Diabetes Sister No problems noted. Son No problems noted. Surgical History: Surgical History (Last Reviewed 02/25/21 @ 14:47 by Madisyn Elkins RN) H/O right wrist surgery Social History: Social History (Last Reviewed 02/25/21 @ 14:47 by Madisyn Elkins RN) Alcohol History: Alcohol intake: never Tobacco History: Smoking Status: Never smoker Smoking status: Never smoker Home Medications and Allergies Home Medications Medication Instructions Recorded Confirmed Type duloxetine 20 mg capsule,delayed 20 mg PO DAILY cap 10/14/20 02/25/21 History release insulin lispro 100 unit/mL 1 sliding scale dose SUBCUT 10/14/20 02/25/21 History subcutaneous solution USEASDIRECTD Allergies Allergy/AdvReac Type Severity Reaction Status Date / Time sertraline [From ZOLOFT] Allergy Unknown SEIZURE Verified 02/12/21 10:13 gabapentin AdvReac Unknown depression Verified 02/12/21 10:13 Physical Exam Vital signs: Vital Signs Temp 98.2 F 02/25/21 14:36 Pulse 90 02/25/21 14:36 Resp 18 02/25/21 14:36 BP 132/74 02/25/21 14:36 Pulse Ox 98 02/25/21 14:36 Intake & Output 02/24/21 02/25/21 02/25/21 18:59 06:59 18:59 Other: Weight 81.9 kg Weight in Grams [id number] Weight 81.9 kg - Constitutional Present: no acute distress - Routine HEENT Exam Head: Present: normal inspection Eye: Present: EOMI, PERRL - Routine Neck Exam Present: supple, lymphadenopathy. Absent: swelling - Routine Respiratory Exam Present: CTAB - Routine Cardiovascular Exam Cardiovascular: Present: RRR, S1, S2 - Routine Extremities Exam Absent: pedal edema - Routine Skin Exam Present: intact. Absent: cyanosis, erythema - Routine Neurological Exam Present: alert, oriented X3 Hem/Onc Consult Result - Labs CBC & Chem 7: 02/25/21 15:26 Assessment and Plan (1) Anemia Status: Acute Qualifiers: Anemia type: other cause Other causes of anemia: other cause, not classified Qualified Code(s): D64.89 - Other specified anemias 1. This is a 30-year-old woman with normocytic anemia, mild iron deficiency. Her anemia has improved with oral iron supplementation and she is no longer iron deficient. Her anemia is most likely related to anemia of chronic disease. She has underlying autoimmune disorder with chronically elevated ESR and markers of inflammation. She is also or diabetic since childhood. She does not have any hematinic deficiencies. No history or signs/symptoms of blood loss. No further workup is necessary at this time. She can be monitored with blood work for now. Thank you for this consultation.
[2021-02-25 15:34] LABS: MANUAL DIFF FLAG NO
[2021-02-25 15:40] LABS: Basophils Percent Auto 0.4 % (0-2); Eosinophils Absolute Auto 0.1 X10*3/uL (0.0-0.4); Eosinophils Percent Auto 0.9 % (0-4); Hematocrit 36.1 % (37-47); Hemoglobin 11.3 g/dl (12.0-16.0); Imm Gran Abs Auto 0.02 X10*3/uL (0.00-0.03); Imm Gran Pct Auto 0.3 % (0.0-0.4); Immature Retic Fraction 14.7 % (3.0-15.9); Lymphocytes Absolute Auto 2.1 X10*3/uL (1.2-4.9); Lymphocytes Percent Auto 28.6 % (20-40); Mean Corpuscular HGB Conc 31.3 g/dl (31.0-35.0); Mean Corpuscular Hemoglobin 25.6 pg (27.0-33.0); Mean Corpuscular Volume 81.7 fL (80-98); Mean Platelet Volume 10.6 fL (9.4-12.3); Monocytes Absolute Auto 0.4 X10*3/uL (0.1-1.2); Monocytes Percent Auto 5.9 % (2-11); Neutrophils Absolute Auto 4.8 X10*3/uL (2.0-8.3); Neutrophils Percent Auto 63.9 % (45-73); Platelet Count 307 X10*3/uL (160-400); Red Blood Count 4.42 X10*6/uL (4.20-5.50); Red Cell Distribution Width 14.2 % (11.0-16.0); Retic HGB Equivalent 28.4 pg (30.0-35.0); Reticulocyte Percent 1.3 % (0.5-1.8); Reticulocytes Absolute 0.059 X10*6/uL (0.026-0.095); White Blood Count 7.5 X10*3/uL (4.8-10.8)
[2021-02-25 16:03] LABS: Iron 128 mcg/dL (30-160); Percent Iron Saturation 42 % (15-50); Total Iron Binding Capacity 304 mcg/dL (228-428); Unsaturated Iron Binding 176 ug/dL
[2021-02-25 16:25] LABS: Ferritin 35 ng/mL (10-122)
== END | disposition home or self-care (01) ==
LOC: HO.ONC 02-25 14:28
PROVIDERS: PCP Internal Medicine; Referring Provider Internal Medicine; Visit Provider Internal Medicine
DX: D50.9 Iron deficiency anemia, unspecified (principal); R70.0 Elevated erythrocyte sedimentation rate
CPT/HCPCS: 36415; 82728; 83540; 85025; 85045; 99202

== ENCOUNTER 2024-07-10 16:02 | Outpatient (AMB) | payer OTHER, SELFPAY ==
[2024-07-10 16:06] VITALS: BP 110/78; PULSE 78; O2SAT 95; BMI 35.8
--- NOTE | 2024-07-10 16:06 | A.OFFPC_ITS ---
Vital Signs 07/10/24 16:06 Height 5 ft 2 in Weight 196 lb BMI 35.8 BP 110/78 Blood Pressure Location Lt brachial Position Sitting Pulse 78 Pulse Source Pulse Oximeter Pulse Oximetry (%) 95 Oxygen Delivery Method Room Air Intake Visit Reasons: Re-establish Care, Med Refill Intake Note: Pt requesting duloxetine rx be taken over by Dr. Marques. Medical Information Officer Required: No Accompanied by: Self / Same As Patient Allergies sertraline [From [facility]OL[facility]] Allergy (Unknown, Verified 07/10/24 16:07) SEIZURE gabapentin Adverse Reaction (Unknown, Verified 07/10/24 16:07) depression Medication List - Last Reconciled 07/10/24 by Raimundo Marques MD duloxetine 20 mg PO DAILY insulin lispro (Admelog U-100 Insulin lispro) 1 sliding scale dose subcut USEASDIRECTD [INSULIN PUMP [facility]] levonorgestrel (Mirena) intrauterine ib-[id number]-Ca carb-vit K 18 mg-400 mcg- 500 mg-50 mcg (Women's Multivitamin) tabs PO Tobacco use date assessed: 07/10/24 Dental Screening Dental Screen Date: 07/10/24 Did you have a dental visit in the last 12 months?: Yes Did you have a dental problem in the last 6 months where you did not have access to dental care?: No Was dental information given to patient?: Patient has dentist HPI Re-establish Care, Med Refill HPI Details 34-year-old obese female with diabetes m ellitus hypercholesterolemia anemia CIDP coming in for follow-up. Last seen in 2020. [facility] Medical History (Updated 07/10/24 @ 16:58 by Raimundo Marques MD) Edema of both legs Anxiety and depression Knee pain, left Polyarthralgia Bilateral hand pain Encounter for IUD insertion Neck fullness Distal radius fracture Hypercholesterolemia Diabetes mellitus type 1 CIDP (chronic inflammatory demyelinating polyneuropathy) Surgical History H/O right wrist surgery Family History Mother Fibromyalgia Father High cholesterol Diabetes Sister No problems noted. Son No problems noted. Social History (Updated 07/10/24 @ 16:59 by Raimundo Marques MD) Housing: House Alcohol intake: current Comment: once Q 2 months 1-2 glasses Patient Tobacco Use Status: Never used Tobacco Tobacco use type: Cigarette e-Cigarette/Vaping Use: Never Used service: No Current occupational status: employed Cognitive needs: No Hearing needs: No Vision needs: Yes (Should wear glasses but broken.) Female Reproductive History Menstrual Age of Menarche: 11 Questionnaire PHQ-9 Over the last 2 weeks, how often have you been bothered by any of the following problems? 1. Little interest or pleasure in doing things: not at all 2. Feeling down, depressed, or hopeless: not at all 3. Trouble falling or staying asleep, or sleeping too much: not at all 4. Feeling tired or having little energy: not at all 5. Poor appetite or overeating: not at all 6. Feeling bad about yourself - or that you are a failure or have let yourself or your family down: not at all 7. Trouble concentrating on things, such as reading the newspaper or watching television: not at all 8. Moving or speaking so slowly that other people could have noticed. Or the opposite - being so fidgety or restless that you have been moving around a lot more than usual: not at all 9. Thoughts that you would be better off or of hurting yourself in some way: not at all Total score: 0 Depression Screening Interpretation: Negative Depression Screening Done: Yes Source: Developed by Drs. Timothy Gray, Addie Bay, Derick Jones and colleagues, with an educational lala from [employer]. Thrive Questionnaire Date Thrive assessed: 07/10/24 I am a: Patient What is your living situation today?: I have a steady place to live Within the past 12 months, did the food you bought not last and you didn't have the money to get more?: Never true Within the past 12 months, did you worry whether your food would run out before you got money to buy more?: Never true Are you currently unemployed and looking for a job?: No THRIVE Score: 0 AUDIT C Alcohol Use Questionnaire (AUDIT-C) 1. How often do you have a drink containing alcohol?: Never 2. How many drinks containing alcohol do you have on a typical day when you are drinking?: 1 or 2 (0) 3. How often do you have six or more drinks on one occasion?: Never Total Score: 0 Score Reviewed/Action Taken: No GISSELLE-7 AMB Questionnaire GISSELLE-7 Date GISSELLE - 7 assessed: 07/10/24 Feeling nervous, anxious, or on edge: 0 = Not at all Not being able to stop or control worryin = Not at all Worrying too much about different things: 0 = Not at all Trouble relaxin = Not at all Being so restless that it is hard to sit still: 0 = Not at all Becoming easily annoyed or irritable: 0 = Not at all Feeling afraid as if something awful might happen: 0 = Not at all Total GISSELLE-7 score (0-4 normal; 5-9 mild; 10-14 moderate; 15-21 severe): 0 Source: Developed by Drs. Timothy Gray, Addie Bay, Derick Jones and colleagues, with an educational lala from [employer]. Physical exam (Primary Care) Vital Signs: Last Vital Signs Pulse 78 07/10/24 16:06 BP 110/78 07/10/24 16:06 Pulse Ox 95 07/10/24 16:06 Oxygen Delivery Method Room Air 07/10/24 16:06 BMI result Body Mass Index 35.8 Tobacco/Smoking Status: Tobacco use Status Tobacco use date assessed 07/10/24 07/10/24 16:10 Patient Tobacco Use Status Never used Tobacco 07/10/24 16:10 Tobacco use type Cigarette 07/10/24 16:10 e-Cigarette/Vaping Use Never Used 07/10/24 16:10 PHQ-9: PHQ-9 Score PHQ-9: Total score 0 07/10/24 16:15 Depression Screening Interpretation: Negative Thrive Assessment: Date of Thrive Assessment Date Thrive assessed 07/10/24 07/10/24 16:10 Const General: alert; No acute distress Eyes Conjunctivae: conjunctivae normal Resp Auscultation: clear to auscultation bilaterally Cardio Rate: regular rate Rhythm: regular rhythm GI Inspection: Yes normal to inspection Extrem General: Yes normal to inspection and No edema Assessment and Plan Assessment & Plan (1) Diabetes mellitus type 1: Code(s): E10.9 - Type 1 diabetes mellitus without complications Qualifiers: Diabetes mellitus complication status: without complication Qualified Code(s): E10.9 - Type 1 diabetes mellitus without complications Plan: Decrease the amount of carbohydrate intake, pasta, bread, rice and potatoes are all sugar and that is aside from all the sweet stuff, remember that fruits are good but they are Sweet also. Hemoglobin A1c goal of less than 6.5. Patient on insulin (2) Hypercholesterolemia: Code(s): E78.00 - Pure hypercholesterolemia, unspecified Plan: Avoid fried foods, chicken skin, eggs, butter margarine, pastries and meat. Be it pork or beef they have a lot of cholesterol LDL goal of less than 100 and triglyceride of less than 150 advised blood work. (3) Anemia: Code(s): D64.9 - Anemia, unspecified Qualifiers: Anemia type: other cause Other causes of anemia: other cause, not classified Qualified Code(s): D64.89 - Other specified anemias Plan: Advised to get blood work done (4) CIDP (chronic inflammatory demyelinating polyneuropathy): Comment: Neurology [facility] Code(s): G61.81 - Chronic inflammatory demyelinating polyneuritis Plan: Advised to get blood work done (5) GISSELLE (generalized anxiety disorder): Code(s): F41.1 - Generalized anxiety disorder Orders: Orders Microalbumin, Random (w Creat) Today E10.9 - Type 1 diabetes mellitus without complications, E11.65 - Type 2 diabetes mellitus with hyperglycemia IRON PROFILE Today E10.9 - Type 1 diabetes mellitus without complications Thyroid Stimulating Hormone Today E10.9 - Type 1 diabetes mellitus without complications Complete Blood Count Auto Diff Today E10.9 - Type 1 diabetes mellitus without complications Comprehensive Met. Panel Today E10.9 - Type 1 diabetes mellitus without com plications Creatinine Urine Today E10.9 - Type 1 diabetes mellitus without complications, E11.65 - Type 2 diabetes mellitus with hyperglycemia Lipid Panel Today E10.9 - Type 1 diabetes mellitus without complications, E78.00 - Pure hypercholesterolemia, unspecified Free T4 (Free Thyroxine) Today E10.9 - Type 1 diabetes mellitus without complications Hemoglobin A1c Today E10.9 - Type 1 diabetes mellitus without complications Vitamin B12 and Folate Today E10.9 - Type 1 diabetes mellitus without complications Vitamin D 25-OH Total Today E10.9 - Type 1 diabetes mellitus without complications Medications: New duloxetine 20 mg PO DAILY 90 caps 0RF F41.1 - Generalized anxiety disorder Coding Level of Care Code New Pt Level 4 (33924) Diagnoses Type 1 diabetes mellitus without complication E10.9 Diabetes mellitus complication status: without complication Hypercholesterolemia E78.00 Anemia due to other cause, not classified D64.89 Anemia type: other cause Other causes of anemia: other cause, not classified CIDP (chronic inflammatory demyelinating polyneuropathy) G61.81 GISSELLE (generalized anxiety disorder) F41.1
== END 2024-07-10 17:38 | disposition home or self-care (01) ==
PROVIDERS: PCP Internal Medicine; Visit Provider Internal Medicine
DX: E10.9 Type 1 diabetes mellitus without complications (principal); E78.00 Pure hypercholesterolemia, unspecified; D64.89 Other specified anemias; G61.81 Chronic inflammatory demyelinating polyneuritis; F41.1 Generalized anxiety disorder

== ENCOUNTER → 2024-07-10 16:02 | Outpatient (BNVA) | payer OTHER, SELFPAY | PROVIDERS: PCP Internal Medicine; Visit Provider Internal Medicine | DX: E78.00 Pure hypercholesterolemia, unspecified (principal); D64.89 Other specified anemias; G61.81 Chronic inflammatory demyelinating polyneuritis; F41.1 Generalized anxiety disorder; E11.65 Type 2 diabetes mellitus with hyperglycemia; Z79.4 Long term (current) use of insulin | CPT/HCPCS: 99202 ==

== ENCOUNTER 2024-08-01 14:54 | Outpatient (REF) | payer OTHER, SELFPAY ==
[2024-08-01 15:51] LABS: Appearance Urine Cloudy; Color Urine Yellow; Glucose Urine UA >=1000 mg/dL (Negative); Leukocyte Esterase Urine Moderate (2+) (Negative); Nitrite Urine Negative (Negative); UMIC TRIGGER UACC YES; Urine Blood Moderate (2+) (Negative); Urine Ketones Negative (Negative); Urine Protein 100 (2+) mg/dL (Neg-Trace)
[2024-08-01 15:56] LABS: Bacteria Urine 1+ (None Seen); Hyaline Casts Urine 0-2 /LPF (0-2); UACC Culture Trigger YES; WBC Urine >50 /HPF (0-5)
== END 2024-08-01 14:55 | disposition home or self-care (01) ==
LOC: HO.LAB 14:54
PROVIDERS: PCP Internal Medicine; Visit Provider Internal Medicine
DX: R30.0 Dysuria (principal); E10.9 Type 1 diabetes mellitus without complications; R82.79 Other abnormal findings on microbiological examination of urine
CPT/HCPCS: 81001; 87086; 87088; 87186